=== PATIENT | female | born 1945 | race Caucasian/White ===

== ENCOUNTER 2018-08-20 07:26 | Inpatient (IN) | payer OTHER, MEDICAID ==
[~2018-08-20] VITALS: Ht 162.6 cm; Wt 58.5 kg
[2018-08-20 07:26] VITALS: BP_SYST 122
[2018-08-20 08:10] LABS: HEMATOCRIT 27.8 % (36-48); MEAN CORPUSCULAR HEMOGLOBIN 27 pg (27-31); MEAN CORPUSCULAR VOLUME 84 fL (79.0-98.0); WHITE BLOOD COUNT (AUTO) 9.6 K/uL (4.8-10.8)
[2018-08-20 08:11] LABS: BASOPHILS % (AUTO) 0.2 % (0.0-2.0); EOSINOPHILS % (AUTO) 0.3 % (0.0-4.0); LYMPHOCYTES # (AUTO) 3.6 K/uL (1.0-5.5); MEAN CORPUSCULAR HGB CONC 32 % (32-36); MONOCYTES # (AUTO) 0.6 K/uL (0.0-1.0); MONOCYTES % (AUTO) 6.7 % (1.7-9.3); NEUTROPHILS # (AUTO) 5.4 K/uL (1.8-7.7); NEUTROPHILS % (AUTO) 55.8 % (40.0-70.0); PLATELET COUNT (AUTO) 236 K/uL (130-430); RED CELL DISTRIBUTION WIDTH 21.9 % (9.0-15.0)
[2018-08-20 08:18] LABS: ANION GAP 7 (5-15); CALCIUM 8.1 mg/dL (8.4-11.0); CHLORIDE 116 mmol/L (98-107); CREATININE 2.01 mg/dL (0.55-1.30); GLUCOSE 162 mg/dL (70-99); POTASSIUM 4.2 mmol/L (3.5-5.1); SODIUM SERUM 152 mmol/L (136-145); UREA NITROGEN, BLOOD 48 mg/dL (8-21)
[2018-08-20 08:24] LABS: ALANINE AMINOTRANSFERASE 22 U/L (12-78); ALBUMIN 1.2 g/dL (3.4-4.8); ASPARTATE AMINOTRANSFERASE 48 U/L (10-37); TOTAL BILIRUBIN 0.1 mg/dL (0.0-1.0)
[2018-08-20] MEDS ORDERED: UTI-STAT GT (08:24)
[2018-08-20] MEDS ORDERED: SYN50 GT (08:24)
[2018-08-20] MEDS ORDERED: CAT.1 GT (08:24)
[2018-08-20] MEDS ORDERED: ASCO500T20 GT (08:24)
[2018-08-20] MEDS ORDERED: LEVE500T9 GT (08:24)
[2018-08-20] MEDS ORDERED: METO25TA6 GT (08:24)
[2018-08-20] MEDS ORDERED: MEMA5TAB GT (08:24)
[2018-08-20] MEDS ORDERED: ACET325T53 GT (08:24)
[2018-08-20] MEDS ORDERED: APIX2.5T GT (08:24)
[2018-08-20] MEDS ORDERED: SERT-131 GT (08:24)
[2018-08-20] MEDS ORDERED: SSNOVOLOG SUBCUT (08:24)
[2018-08-20] MEDS ORDERED: DOCU250C14 GT (08:24)
[2018-08-20 08:30] LABS: BILIRUBIN,URINE NEGATIVE (NEGATIVE); BLOOD, URINE 3+ (NEGATIVE); CLARITY/URINE SL CLOUDY (CLEAR); COLOR,URINE YELLOW (YELLOW); GLUCOSE,URINE NEGATIVE (NEGATIVE); KETONES,URINE NEGATIVE (NEGATIVE); LEUKOCYTE ESTERASE ,URINE 3+ (NEGATIVE); NITRITE, URINE NEGATIVE (NEGATIVE); PROTEIN URINE 2+ (NEGATIVE); UROBILINOGEN,URINE 0.2 (0.2-1.0)
[2018-08-20 08:41] LABS: INR 0.9 (0.8-1.2); PROTHROMBIN TIME 9.7 SECS (9.5-12.5)
[2018-08-20 08:52] LABS: BACTERIA,URINE FEW /HPF (None Seen); RBC,URINE 20-50 /HPF (0-3); WBC,URINE 20-50 /HPF (0-3)
[2018-08-20] MEDS ORDERED: cefTRIAXone 1 GM in D5W 50 ML IV ONE (09:15)
[2018-08-20] MEDS ORDERED: cefTRIAXone 1 GM VIAL ONE (09:31)
[2018-08-20 11:30] VITALS: BP_SYST 139
[2018-08-20 12:16] VITALS: BP_SYST 139
[2018-08-20] MEDS ORDERED: ACETAMINOPHEN 325 MG TABLET GT PRN (14:15)
[2018-08-20] MEDS ORDERED: cloNIDine HCL 0.1 MG TABLET GT PRN (14:15)
[2018-08-20 17:01] VITALS: BP_SYST 147
[2018-08-20] MEDS: CEFEPIME 1 GM in D5W 50 ML IV SCH (21:47)
[2018-08-20] MEDS: METOPROLOL TARTRATE 25 MG TABLET GT SCH (21:48)
[2018-08-20] MEDS: APIXABAN 2.5 MG TABLET GT SCH (21:49)
[2018-08-20] MEDS: LevETIRAcetam 500 MG/5 ML UDC ORAL LIQUID GT SCH (21:50)
[2018-08-20] MEDS: DOCUSATE SODIUM 250 MG CAPSULE PO SCH (21:50)
[2018-08-21 01:33] VITALS: BP_SYST 144
[2018-08-21 05:42] LABS: ANION GAP 7 (5-15); CALCIUM 8.4 mg/dL (8.4-11.0); CREATININE 1.81 mg/dL (0.55-1.30); GLUCOSE 154 mg/dL (70-99); POTASSIUM 3.7 mmol/L (3.5-5.1); SODIUM SERUM 156 mmol/L (136-145); UREA NITROGEN, BLOOD 45 mg/dL (8-21)
[2018-08-21 05:55] LABS: CHLORIDE 120 mmol/L (98-107)
[2018-08-21] MEDS: LEVOTHYROXINE SODIUM 0.05 MG TABLET GT SCH (06:30)
[2018-08-21] MEDS: INSULIN REGULAR, HUMAN 100 UNITS/ML, 10 ML VIAL (novoLIN R) SUBCUT PRN (06:38)
[2018-08-21 07:33] LABS: RED BLOOD CELL COUNT(AUTO) 2.71 MIL/uL (4.2-6.2); WHITE BLOOD COUNT (AUTO) 6.1 K/uL (4.8-10.8)
[2018-08-21 07:34] LABS: HEMATOCRIT 23.2 % (36-48); HEMOGLOBIN 7.1 g/dL (12.0-16.0); MEAN CORPUSCULAR HEMOGLOBIN 26 pg (27-31); MEAN CORPUSCULAR HGB CONC 31 % (32-36); MEAN CORPUSCULAR VOLUME 85 fL (79.0-98.0); RED CELL DISTRIBUTION WIDTH 21.9 % (9.0-15.0)
[2018-08-21 07:35] LABS: EOSINOPHILS % (AUTO) 1.5 % (0.0-4.0); MONOCYTES % (AUTO) 13.3 % (1.7-9.3); NEUTROPHILS % (AUTO) 62.6 % (40.0-70.0); PLATELET COUNT (AUTO) 220 K/uL (130-430)
[2018-08-21 07:36] LABS: BASOPHILS % (AUTO) 0.6 % (0.0-2.0); EOSINOPHILS # (AUTO) 0.1 K/uL (0.0-0.4); LYMPHOCYTES # (AUTO) 1.3 K/uL (1.0-5.5); MONOCYTES # (AUTO) 0.8 K/uL (0.0-1.0); NEUTROPHILS # (AUTO) 3.8 K/uL (1.8-7.7)
[2018-08-21 07:50] VITALS: BP_SYST 148
[2018-08-21] MEDS: DOCUSATE SODIUM 250 MG CAPSULE PO SCH ×2 (09:00→20:16)
[2018-08-21] MEDS ORDERED: ENOXAPARIN SODIUM 30 MG/0.3 ML SYRINGE SUBCUT SCH (09:00)
[2018-08-21] MEDS: ASCORBIC ACID 500 MG TABLET GT SCH (09:00)
[2018-08-21] MEDS: SERTRALINE HCL 50 MG TABLET GT SCH (09:00)
[2018-08-21] MEDS: MEMANTINE HCL 5 MG TABLET GT SCH (09:01)
[2018-08-21] MEDS: METOPROLOL TARTRATE 25 MG TABLET GT SCH ×2 (09:01→20:16)
[2018-08-21] MEDS: APIXABAN 2.5 MG TABLET GT SCH ×2 (09:02→21:00)
[2018-08-21] MEDS: LevETIRAcetam 500 MG/5 ML UDC ORAL LIQUID GT SCH ×2 (09:05→20:15)
[2018-08-21 16:19] VITALS: BP_SYST 153
[2018-08-21 19:00] VITALS: BP_SYST 144
[2018-08-21] MEDS: CEFEPIME 1 GM in D5W 50 ML IV SCH (19:48)
[2018-08-21 20:00] VITALS: BP_SYST 144
[2018-08-21 23:55] VITALS: BP_SYST 147
[2018-08-22] MEDS: LEVOTHYROXINE SODIUM 0.05 MG TABLET GT SCH (06:15)
[2018-08-22 07:57] LABS: TOTAL IRON BIND. CAPACITY 165 ug/dL (250-450)
[2018-08-22 08:04] LABS: ANION GAP 6 (5-15); CALCIUM 8.6 mg/dL (8.4-11.0); CREATININE 1.64 mg/dL (0.55-1.30); GLUCOSE 130 mg/dL (70-99); POTASSIUM 3.5 mmol/L (3.5-5.1); SODIUM SERUM 156 mmol/L (136-145); UREA NITROGEN, BLOOD 41 mg/dL (8-21)
[2018-08-22 08:08] LABS: HEMATOCRIT 27.4 % (36-48); HEMOGLOBIN 8.2 g/dL (12.0-16.0); RED BLOOD CELL COUNT(AUTO) 3.15 MIL/uL (4.2-6.2); WHITE BLOOD COUNT (AUTO) 5.9 K/uL (4.8-10.8)
[2018-08-22 08:09] LABS: BASOPHILS % (AUTO) 0.8 % (0.0-2.0); EOSINOPHILS # (AUTO) 0.1 K/uL (0.0-0.4); EOSINOPHILS % (AUTO) 1.7 % (0.0-4.0); LYMPHOCYTES # (AUTO) 1.8 K/uL (1.0-5.5); LYMPHOCYTES % (AUTO) 30.6 % (20.5-51.5); MEAN CORPUSCULAR HEMOGLOBIN 26 pg (27-31); MEAN CORPUSCULAR HGB CONC 30 % (32-36); MEAN CORPUSCULAR VOLUME 87 fL (79.0-98.0); MONOCYTES # (AUTO) 0.7 K/uL (0.0-1.0); MONOCYTES % (AUTO) 11.1 % (1.7-9.3); NEUTROPHILS # (AUTO) 3.3 K/uL (1.8-7.7); NEUTROPHILS % (AUTO) 55.8 % (40.0-70.0); PLATELET COUNT (AUTO) 291 K/uL (130-430)
[2018-08-22 08:10] LABS: CHLORIDE 123 mmol/L (98-107)
[2018-08-22 08:45] VITALS: BP_SYST 119
[2018-08-22] MEDS: DOCUSATE SODIUM 250 MG CAPSULE PO SCH ×2 (09:19→20:29)
[2018-08-22] MEDS: METOPROLOL TARTRATE 25 MG TABLET GT SCH ×2 (09:19→20:30)
[2018-08-22] MEDS: SERTRALINE HCL 50 MG TABLET GT SCH (09:20)
[2018-08-22] MEDS: MEMANTINE HCL 5 MG TABLET GT SCH (09:20)
[2018-08-22] MEDS: ASCORBIC ACID 500 MG TABLET GT SCH (09:20)
[2018-08-22] MEDS: APIXABAN 2.5 MG TABLET GT SCH ×2 (09:22→20:33)
[2018-08-22] MEDS: LevETIRAcetam 500 MG/5 ML UDC ORAL LIQUID GT SCH ×2 (09:34→20:32)
[2018-08-22] MEDS: INSULIN REGULAR, HUMAN 100 UNITS/ML, 10 ML VIAL (novoLIN R) SUBCUT PRN ×3 (11:33→23:43)
[2018-08-22 12:29] VITALS: BP_SYST 149
[2018-08-22 16:25] VITALS: BP_SYST 139
[2018-08-22 19:52] VITALS: BP_SYST 149
[2018-08-22] MEDS: CEFEPIME 1 GM in D5W 50 ML IV SCH (20:29)
[2018-08-23 01:39] VITALS: BP_SYST 144
[2018-08-23] MEDS: LEVOTHYROXINE SODIUM 0.05 MG TABLET GT SCH (06:06)
[2018-08-23] MEDS: INSULIN REGULAR, HUMAN 100 UNITS/ML, 10 ML VIAL (novoLIN R) SUBCUT PRN ×3 (06:13→23:44)
[2018-08-23 07:08] LABS: ANION GAP 2 (5-15); CALCIUM 8.9 mg/dL (8.4-11.0); CREATININE 1.63 mg/dL (0.55-1.30); GLUCOSE 168 mg/dL (70-99); POTASSIUM 3.4 mmol/L (3.5-5.1); SODIUM SERUM 159 mmol/L (136-145); UREA NITROGEN, BLOOD 41 mg/dL (8-21)
[2018-08-23 07:16] LABS: CHLORIDE 126 mmol/L (98-107)
[2018-08-23 08:15] VITALS: BP_SYST 144
[2018-08-23 08:19] LABS: HEMATOCRIT 28.3 % (36-48); HEMOGLOBIN 8.5 g/dL (12.0-16.0); MEAN CORPUSCULAR HEMOGLOBIN 26 pg (27-31); MEAN CORPUSCULAR HGB CONC 30 % (32-36); MEAN CORPUSCULAR VOLUME 87 fL (79.0-98.0); PLATELET COUNT (AUTO) 280 K/uL (130-430); RED BLOOD CELL COUNT(AUTO) 3.27 MIL/uL (4.2-6.2); RED CELL DISTRIBUTION WIDTH 21.9 % (9.0-15.0); WHITE BLOOD COUNT (AUTO) 6.4 K/uL (4.8-10.8)
[2018-08-23 08:20] LABS: BASOPHILS % (AUTO) 0.5 % (0.0-2.0); EOSINOPHILS # (AUTO) 0.1 K/uL (0.0-0.4); EOSINOPHILS % (AUTO) 1.6 % (0.0-4.0); LYMPHOCYTES # (AUTO) 2.3 K/uL (1.0-5.5); MONOCYTES # (AUTO) 0.7 K/uL (0.0-1.0); MONOCYTES % (AUTO) 10.9 % (1.7-9.3); NEUTROPHILS # (AUTO) 3.3 K/uL (1.8-7.7)
[2018-08-23] MEDS: APIXABAN 2.5 MG TABLET GT SCH ×2 (09:55→21:40)
[2018-08-23] MEDS: DOCUSATE SODIUM 250 MG CAPSULE PO SCH ×2 (09:56→21:41)
[2018-08-23] MEDS: LevETIRAcetam 500 MG/5 ML UDC ORAL LIQUID GT SCH ×2 (09:56→21:38)
[2018-08-23] MEDS: MEMANTINE HCL 5 MG TABLET GT SCH (09:56)
[2018-08-23] MEDS: METOPROLOL TARTRATE 25 MG TABLET GT SCH ×2 (09:56→21:36)
[2018-08-23] MEDS: ASCORBIC ACID 500 MG TABLET GT SCH (09:56)
[2018-08-23] MEDS: SERTRALINE HCL 50 MG TABLET GT SCH (09:56)
[2018-08-23 12:06] LABS: FOLATE (FOLIC ACID) 9.2 ng/mL (>3.0)
[2018-08-23 13:12] VITALS: BP_SYST 138
[2018-08-23] MEDS ORDERED: POTASSIUM CHLORIDE 20 MEQ/PKT PACKET GT ONE (16:30)
[2018-08-23 16:59] VITALS: BP_SYST 142
[2018-08-23] MEDS: D5W 1,000 ML IV SCH (18:12)
[2018-08-23 20:54] VITALS: BP_SYST 148
[2018-08-23] MEDS: MEROPENEM 1 GM in NS 100 ML IV SCH (21:37)
[2018-08-24 01:06] VITALS: BP_SYST 131
[2018-08-24] MEDS: MEROPENEM 1 GM in NS 100 ML IV SCH ×2 (06:05→17:37)
[2018-08-24] MEDS: LEVOTHYROXINE SODIUM 0.05 MG TABLET GT SCH (06:05)
[2018-08-24 07:25] LABS: ANION GAP 7 (5-15); CALCIUM 8.3 mg/dL (8.4-11.0); CREATININE 1.62 mg/dL (0.55-1.30); GLUCOSE 155 mg/dL (70-99); POTASSIUM 4.1 mmol/L (3.5-5.1); UREA NITROGEN, BLOOD 39 mg/dL (8-21)
[2018-08-24 07:35] LABS: SODIUM SERUM 164 mmol/L (136-145)
[2018-08-24 07:36] LABS: CHLORIDE 126 mmol/L (98-107)
[2018-08-24 08:00] LABS: HEMATOCRIT 27.2 % (36-48); MEAN CORPUSCULAR VOLUME 88 fL (79.0-98.0); RED BLOOD CELL COUNT(AUTO) 3.09 MIL/uL (4.2-6.2); WHITE BLOOD COUNT (AUTO) 6.9 K/uL (4.8-10.8)
[2018-08-24 08:01] LABS: BASOPHILS % (AUTO) 0.3 % (0.0-2.0); EOSINOPHILS # (AUTO) 0.1 K/uL (0.0-0.4); EOSINOPHILS % (AUTO) 1.8 % (0.0-4.0); LYMPHOCYTES # (AUTO) 2.3 K/uL (1.0-5.5); LYMPHOCYTES % (AUTO) 33.9 % (20.5-51.5); MEAN CORPUSCULAR HEMOGLOBIN 26 pg (27-31); MEAN CORPUSCULAR HGB CONC 30 % (32-36); MONOCYTES # (AUTO) 0.6 K/uL (0.0-1.0); MONOCYTES % (AUTO) 9.4 % (1.7-9.3); NEUTROPHILS # (AUTO) 3.8 K/uL (1.8-7.7); NEUTROPHILS % (AUTO) 54.6 % (40.0-70.0); PLATELET COUNT (AUTO) 289 K/uL (130-430)
[2018-08-24 08:10] VITALS: BP_SYST 130
[2018-08-24] MEDS: D5W 1,000 ML IV SCH (09:47)
[2018-08-24] MEDS: METOPROLOL TARTRATE 25 MG TABLET GT SCH ×2 (09:47→20:13)
[2018-08-24] MEDS: SERTRALINE HCL 50 MG TABLET GT SCH (09:48)
[2018-08-24] MEDS: ASCORBIC ACID 500 MG TABLET GT SCH (09:48)
[2018-08-24] MEDS: LevETIRAcetam 500 MG/5 ML UDC ORAL LIQUID GT SCH ×2 (09:48→20:10)
[2018-08-24] MEDS: DOCUSATE SODIUM 250 MG CAPSULE PO SCH ×2 (09:48→20:10)
[2018-08-24] MEDS: MEMANTINE HCL 5 MG TABLET GT SCH (09:48)
[2018-08-24] MEDS: APIXABAN 2.5 MG TABLET GT SCH ×2 (09:50→20:14)
[2018-08-24 12:31] VITALS: BP_SYST 149
[2018-08-24] MEDS: INSULIN REGULAR, HUMAN 100 UNITS/ML, 10 ML VIAL (novoLIN R) SUBCUT PRN ×2 (12:34→17:39)
[2018-08-24 16:39] VITALS: BP_SYST 132
[2018-08-24 20:00] VITALS: BP_SYST 135
[2018-08-25] VITALS (7 sets, daily range): BP systolic 119–143
[2018-08-25] MEDS: D5W 1,000 ML IV SCH ×2 (01:35→18:30)
[2018-08-25] MEDS ORDERED: MEROPENEM 500 MG VIAL IV ONE (04:45)
[2018-08-25] MEDS: MEROPENEM 1 GM in NS 100 ML IV SCH ×2 (05:29→19:07)
[2018-08-25] MEDS: LEVOTHYROXINE SODIUM 0.05 MG TABLET GT SCH (06:49)
[2018-08-25 07:37] LABS: ANION GAP 1 (5-15); CALCIUM 8.4 mg/dL (8.4-11.0); CHLORIDE 118 mmol/L (98-107); CREATININE 1.49 mg/dL (0.55-1.30); GLUCOSE 135 mg/dL (70-99); POTASSIUM 3.7 mmol/L (3.5-5.1); SODIUM SERUM 152 mmol/L (136-145); UREA NITROGEN, BLOOD 34 mg/dL (8-21)
[2018-08-25] MEDS: DOCUSATE SODIUM 250 MG CAPSULE PO SCH ×2 (09:00→20:59)
[2018-08-25 09:31] LABS: HEMATOCRIT 23.3 % (36-48); HEMOGLOBIN 7.1 g/dL (12.0-16.0); MEAN CORPUSCULAR HEMOGLOBIN 27 pg (27-31); MEAN CORPUSCULAR HGB CONC 31 % (32-36); MEAN CORPUSCULAR VOLUME 86 fL (79.0-98.0); PLATELET COUNT (AUTO) 256 K/uL (130-430); RED CELL DISTRIBUTION WIDTH 21.4 % (9.0-15.0); WHITE BLOOD COUNT (AUTO) 7.9 K/uL (4.8-10.8)
[2018-08-25 09:32] LABS: BASOPHILS % (AUTO) 0.5 % (0.0-2.0); EOSINOPHILS # (AUTO) 0.4 K/uL (0.0-0.4); EOSINOPHILS % (AUTO) 5.2 % (0.0-4.0); LYMPHOCYTES % (AUTO) 38.3 % (20.5-51.5); MONOCYTES # (AUTO) 0.5 K/uL (0.0-1.0); MONOCYTES % (AUTO) 6.6 % (1.7-9.3); NEUTROPHILS # (AUTO) 3.9 K/uL (1.8-7.7); NEUTROPHILS % (AUTO) 49.4 % (40.0-70.0)
[2018-08-25] MEDS: ASCORBIC ACID 500 MG TABLET GT SCH (09:42)
[2018-08-25] MEDS: SERTRALINE HCL 50 MG TABLET GT SCH (09:43)
[2018-08-25] MEDS: MEMANTINE HCL 5 MG TABLET GT SCH (09:43)
[2018-08-25] MEDS: METOPROLOL TARTRATE 25 MG TABLET GT SCH ×2 (09:44→21:12)
[2018-08-25] MEDS: LevETIRAcetam 500 MG/5 ML UDC ORAL LIQUID GT SCH ×2 (09:48→20:58)
[2018-08-25] MEDS: APIXABAN 2.5 MG TABLET GT SCH ×2 (09:48→21:01)
== END 2018-08-26 00:40 | DRG 871 ==
LOC: SED 07:26 → STU 11:35 → SMU 08-21 16:42
PROVIDERS: ADMIT Family Medicine; ATTEND Family Medicine
PROC: 30233N1 Transfusion of Nonautologous Red Blood Cells into Peripheral Vein, Percutaneous Approach (ICD-10-PCS; principal; 2018-08-25)
DX: A41.9 Sepsis, unspecified organism (principal); G93.41 Metabolic encephalopathy; N39.0 Urinary tract infection, site not specified; N17.9 Acute kidney failure, unspecified; E87.0 Hyperosmolality and hypernatremia; Z66 Do not resuscitate; D64.9 Anemia, unspecified; E86.0 Dehydration; E11.9 Type 2 diabetes mellitus without complications; I11.0 Hypertensive heart disease with heart failure; J44.9 Chronic obstructive pulmonary disease, unspecified; E03.9 Hypothyroidism, unspecified; F03.90 Unspecified dementia, unspecified severity, without behavioral disturbance, psychotic disturbance, mood disturbance, and anxiety; I50.9 Heart failure, unspecified; Z93.1 Gastrostomy status; Z79.84 Long term (current) use of oral hypoglycemic drugs; Z79.899 Other long term (current) drug therapy; Z88.1 Allergy status to other antibiotic agents; Z88.8 Allergy status to other drugs, medicaments and biological substances; Z86.73 Personal history of transient ischemic attack (TIA), and cerebral infarction without residual deficits; Z88.6 Allergy status to analgesic agent
CPT/HCPCS: 36415; 36600; 71045; 80048; 80053; 81000-TC; 82607; 82728; 82746; 82803-TC; 82962; 83540-TC; 83550-TC; 83605; 83880; 84484; 85025; 85379; 85610-TC; 85730-TC; 86886; 86900; 86901; 86920; 87040-TC; 87081; 87086; 87186-TC; 93005; 96365; G0378; J0692; J0696; J1815; J2185; J7060; P9021

== ENCOUNTER 2018-09-03 00:34 | Emergency (ER) | payer OTHER, MEDICAID ==
[~2018-09-03] VITALS: Ht 160 cm; Wt 74.8 kg
[~2018-09-03 00:34] MED LIST: ACET325T53 GT; APIX2.5T GT; ASCO500T20 GT; CAT.1 GT; DOCU250C14 GT; LEVE500T9 GT; MEMA5TAB GT; METO25TA6 GT; SERT-131 GT; SSNOVOLOG SUBCUT; SYN50 GT; UTI-STAT GT
[2018-09-03 00:38] VITALS: BP_SYST 128
--- NOTE | 2018-09-03 00:38 | NUR ---
Pt BIBA to bed 3 for evaluation
--- NOTE | 2018-09-03 00:40 | NUR ---
PT BIB BLS from [facility] C/O abdominal distension since 231 last night and mild back pain. Pt has recently finished antibiotic therapy for ESBL of the urine. Pt has hx of UTI and last BM was 2 days ago. Pt has left sided weakness from previous CVA. Pt denies any other symptoms at this time. Vital signs are stable, will continue to monitor.
[2018-09-03] MEDS ORDERED: NACL 0.9% 1,000 ML IV ONE (01:04)
--- NOTE | 2018-09-03 01:07 | NUR ---
Medication reconciliation completed with information provided by [facility]. Any prior medication reconciliation on file was reviewed and corrected.
--- NOTE | 2018-09-03 01:15 | NUR ---
ER Dr. Naqvi at bedside examining patient.
[2018-09-03 01:26] LABS: BASOPHILS % (AUTO) 0.4 % (0.0-2.0); EOSINOPHILS # (AUTO) 0.2 K/uL (0.0-0.4); EOSINOPHILS % (AUTO) 2.3 % (0.0-4.0); HEMATOCRIT 32.6 % (36-48); HEMOGLOBIN 10.4 g/dL (12.0-16.0); LYMPHOCYTES # (AUTO) 2.7 K/uL (1.0-5.5); MEAN CORPUSCULAR HEMOGLOBIN 27 pg (27-31); MEAN CORPUSCULAR HGB CONC 32 % (32-36); MEAN CORPUSCULAR VOLUME 85 fL (79.0-98.0); MONOCYTES # (AUTO) 0.6 K/uL (0.0-1.0); MONOCYTES % (AUTO) 8.2 % (1.7-9.3); NEUTROPHILS # (AUTO) 4.3 K/uL (1.8-7.7); NEUTROPHILS % (AUTO) 55.1 % (40.0-70.0); PLATELET COUNT (AUTO) 177 K/uL (130-430); RED BLOOD CELL COUNT(AUTO) 3.84 MIL/uL (4.2-6.2); RED CELL DISTRIBUTION WIDTH 19.8 % (9.0-15.0); WHITE BLOOD COUNT (AUTO) 7.8 K/uL (4.8-10.8)
--- NOTE | 2018-09-03 01:31 | NUR ---
Pt taken by radiology for ct abd/pelvis via gurney
[2018-09-03 01:40] LABS: ANION GAP 6 (5-15); CALCIUM 8.7 mg/dL (8.4-11.0); CHLORIDE 108 mmol/L (98-107); CREATININE 1.41 mg/dL (0.55-1.30); GLUCOSE 123 mg/dL (70-99); POTASSIUM 4.4 mmol/L (3.5-5.1); SODIUM SERUM 146 mmol/L (136-145); UREA NITROGEN, BLOOD 39 mg/dL (8-21)
[2018-09-03 01:43] LABS: PROTHROMBIN TIME 9.8 SECS (9.5-12.5)
[2018-09-03 01:44] LABS: ALANINE AMINOTRANSFERASE 19 U/L (12-78); ALBUMIN 1.6 g/dL (3.4-4.8); ASPARTATE AMINOTRANSFERASE 21 U/L (10-37); TOTAL BILIRUBIN 0.2 mg/dL (0.0-1.0)
--- NOTE | 2018-09-03 02:00 | NUR ---
# 16 FR Ny catheter with use of sterile technique. Immediate return of 900 cc phill urine noted. Bedside drainage bag placed below level of bladder. Urine sample collected and sent to lab. Pt tolerated procedure well. Ny emptying to gravity well. Will continue to monitor pt.
[2018-09-03 02:11] LABS: BILIRUBIN,URINE NEGATIVE (NEGATIVE); BLOOD, URINE 3+ (NEGATIVE); CLARITY/URINE HAZY (CLEAR); COLOR,URINE YELLOW (YELLOW); GLUCOSE,URINE NEGATIVE (NEGATIVE); KETONES,URINE NEGATIVE (NEGATIVE); LEUKOCYTE ESTERASE ,URINE 1+ (NEGATIVE); NITRITE, URINE NEGATIVE (NEGATIVE); PROTEIN URINE 2+ (NEGATIVE); UROBILINOGEN,URINE 0.2 (0.2-1.0)
[2018-09-03 02:16] LABS: BACTERIA,URINE FEW /HPF (None Seen); RBC,URINE 50-80 /HPF (0-3); WBC,URINE 20-50 /HPF (0-3)
--- NOTE | 2018-09-03 03:44 | NUR ---
Note undone in EDM - 09/03/18 at 0347 by [email or web address] Patient to be transferred back to [facility]. Pt will be returning back to her room. ER physician has signed transfer form. Patient or responsible constitution party has agreed to transfer and signed form. Patient belongings inventoried and will be sent with patient. Copy of nursing notes, lab reports, EKG, Physicians Orders and X-rays to be sent with patient. Report called to Nurse Alfaro at receiving facility, [facility]. Care ambulance service has been called for transfer. Care ambulance prsent. ETA is about 20 minuites.
--- NOTE | 2018-09-03 03:47 | NUR ---
Patient given written and verbal discharge instructions and verbalizes understanding. ER MD discussed with patient the results and treatment provided. Patient in stable condition. ID arm band removed. IV catheter removed intact and dressing applied, no active bleeding.Patient educated on pain management and to follow up with PMD. Pain Scale 0/10. Opportunity for questions provided and answered. Medication side effect fact sheet provided. Patient to be discharged back to [facility]. Copy of nursing notes, lab reports, EKG, Physicians Orders and X-rays to be sent with patient. Report called to Nurse Alfaro at receiving facility, [facility]. Care ambulance service prsent. ETA is about 20 minuites.
[2018-09-03 03:49] VITALS: BP_SYST 115
== END 2018-09-03 03:49 | disposition home or self-care (01) ==
LOC: SED 00:34
DX: N39.0 Urinary tract infection, site not specified (principal); R33.9 Retention of urine, unspecified; D64.9 Anemia, unspecified; I13.0 Hypertensive heart and chronic kidney disease with heart failure and stage 1 through stage 4 chronic kidney disease, or unspecified chronic kidney disease; E11.22 Type 2 diabetes mellitus with diabetic chronic kidney disease; N18.9 Chronic kidney disease, unspecified; I50.9 Heart failure, unspecified; Z86.73 Personal history of transient ischemic attack (TIA), and cerebral infarction without residual deficits; Z88.1 Allergy status to other antibiotic agents; Z88.5 Allergy status to narcotic agent; Z88.8 Allergy status to other drugs, medicaments and biological substances; Z79.899 Other long term (current) drug therapy
CPT/HCPCS: 36415; 51702; 74176; 80053; 81000; 85025; 85610; 85730; 87086; 99284; J7030

== ENCOUNTER 2018-09-09 07:29 | Inpatient (IN) | payer OTHER, MEDICAID ==
[~2018-09-09] VITALS: Ht 162.6 cm; Wt 61.7 kg
--- NOTE | 2018-09-09 07:35 | NUR ---
Placed in room 2. Placed on cardiac rehabilitation program director, blood pressure machine and pulse oximeter. To gown for exam. Side rails up. Report given to SHELLY Campa.
[2018-09-09 07:37] VITALS: BP_SYST 127
--- NOTE | 2018-09-09 07:40 | NUR ---
Patient is awake, alert, and oriented x4. Patient came in by ambulance from [facility]. Rales can be heard throughout. Patient was brought in with NRB mask on. Labored breathing and rales noted. Addendum: 09/09/18 at 0742 by [email or web address] Patient brought in with 22g to left AC, g-tube, meneses catheter.
--- NOTE | 2018-09-09 07:40 | NUR ---
ER Dr. Berry at bedside examining patient.
[2018-09-09] MEDS ORDERED: methylPREDNISolone SOD SUCC/PF 62.5 MG/ML VIAL IVP ONE ×2 (07:45→12:30)
[2018-09-09] MEDS ORDERED: MAGNESIUM SULFATE 1 GM in NS 50 ML IV ONE (07:45)
[2018-09-09] MEDS ORDERED: ALBUTEROL SULFATE 0.083% 2.5 MG/3 ML VIAL.NEB IH ONE (07:45)
[2018-09-09] MEDS ORDERED: IPRATROPIUM BROM 0.5 MG/2.5 ML VIAL.NEB (ATROVENT) IH ONE (07:45)
--- NOTE | 2018-09-09 07:57 | NUR ---
RT placed patient on BiPAP 12/5, FiO2 50%, BR 16.
[2018-09-09] MEDS ORDERED: MAGNESIUM SULFATE 1 GM/2 ML VIAL ONE (08:11)
[2018-09-09] MEDS ORDERED: VANCOMYCIN HCL 1,000 MG in D5W 250 ML IV ONE (08:30)
[2018-09-09] MEDS ORDERED: NS 1000 ML IV.SOLN IV ONE (08:30)
[2018-09-09] MEDS ORDERED: PIPERACILLIN/TAZO 3.38 GM in D5W 50 ML IV ONE (08:30)
[2018-09-09 08:48] LABS: BASOPHILS % (AUTO) 0.5 % (0.0-2.0); EOSINOPHILS # (AUTO) 0.1 K/uL (0.0-0.4); EOSINOPHILS % (AUTO) 0.6 % (0.0-4.0); HEMOGLOBIN 10.4 g/dL (12.0-16.0); LYMPHOCYTES # (AUTO) 1.1 K/uL (1.0-5.5); LYMPHOCYTES % (AUTO) 13.7 % (20.5-51.5); MEAN CORPUSCULAR HEMOGLOBIN 27 pg (27-31); MEAN CORPUSCULAR HGB CONC 31 % (32-36); MEAN CORPUSCULAR VOLUME 87 fL (79.0-98.0); MONOCYTES # (AUTO) 0.5 K/uL (0.0-1.0); MONOCYTES % (AUTO) 6.7 % (1.7-9.3); NEUTROPHILS # (AUTO) 6.4 K/uL (1.8-7.7); NEUTROPHILS % (AUTO) 78.5 % (40.0-70.0); PLATELET COUNT (AUTO) 143 K/uL (130-430); RED CELL DISTRIBUTION WIDTH 21.1 % (9.0-15.0); WHITE BLOOD COUNT (AUTO) 8.1 K/uL (4.8-10.8)
[2018-09-09] MEDS ORDERED: PIPERACILLIN/TAZOBACTAM 3.375 GM/VIAL (ZOSYN) IV ONE (09:01)
[2018-09-09 09:03] LABS: ANION GAP 5 (5-15); CALCIUM 8.7 mg/dL (8.4-11.0); CHLORIDE 106 mmol/L (98-107); CREATININE 1.02 mg/dL (0.55-1.30); GLUCOSE 156 mg/dL (70-99); POTASSIUM 4.4 mmol/L (3.5-5.1); SODIUM SERUM 143 mmol/L (136-145); UREA NITROGEN, BLOOD 32 mg/dL (8-21)
[2018-09-09 09:05] LABS: INR 0.9 (0.8-1.2); PROTHROMBIN TIME 9.5 SECS (9.5-12.5)
[2018-09-09 09:08] LABS: ALANINE AMINOTRANSFERASE 16 U/L (12-78); ALBUMIN 1.8 g/dL (3.4-4.8); ASPARTATE AMINOTRANSFERASE 22 U/L (10-37); TOTAL BILIRUBIN 0.5 mg/dL (0.0-1.0)
[2018-09-09] MEDS ORDERED: CLOPIDOGREL BISULFATE 75 MG TABLET PO ONE (09:15)
--- NOTE | 2018-09-09 09:40 | NUR ---
Patient will be admitted to care of Dr. Nance. Admitted to telemetry unit. Will go to room 133A. Belongings list completed. Summary report printed. Report will be given at bedside.
[2018-09-09] MEDS ORDERED: MORPHINE 4 MG/ML INJ. SYRINGE IVP PRN ×2 (09:45)
[2018-09-09] MEDS ORDERED: IPRATROPIUM/ALBUTEROL SULFATE 3 ML AMPUL.NEB (DUONEB) INH ONE (09:45)
[2018-09-09] MEDS ORDERED: cloNIDine HCL 0.1 MG TABLET GT PRN (09:45)
[2018-09-09] MEDS ORDERED: MAGNESIUM SULFATE 50 ML IV PRN (09:45)
[2018-09-09] MEDS ORDERED: ONDANSETRON HCL 4 MG/2 ML VIAL IVP PRN (09:45)
[2018-09-09] MEDS ORDERED: POTASSIUM CHLORIDE 20 MEQ TAB.PRT.SR PO PRN (09:45)
[2018-09-09] MEDS ORDERED: DOCUSATE SODIUM 100 MG CAPSULE PO PRN (09:45)
[2018-09-09] MEDS ORDERED: ZOLPIDEM TARTRATE 5 MG TABLET PO PRN (09:45)
[2018-09-09] MEDS ORDERED: MUPIROCIN 2% TOPICAL OINTMENT 22 GM NS PRN (09:45)
[2018-09-09] MEDS ORDERED: DEXTROSE 50% JECT 50 ML DISP.SYRIN IVP PRN (09:45)
[2018-09-09] MEDS ORDERED: NACL 0.9% 1,000 ML IV SCH (09:45)
[2018-09-09] MEDS ORDERED: ACETAMINOPHEN 325 MG TABLET GT PRN (09:45)
[2018-09-09] MEDS ORDERED: ACETAMINOPHEN 325 MG TABLET PO PRN (09:45)
[2018-09-09] MEDS ORDERED: LORazepam 2 MG/ML VIAL IVP PRN (09:45)
--- NOTE | 2018-09-09 09:52 | NUR ---
BiPAP titrated down to 40% by RT Fadi.
--- NOTE | 2018-09-09 11:00 | NUR ---
Patient transported to telemetry room 133A via [employer], mobile monitor, 2 RNs. Report given to SHELLY Qureshi at bedside for continuation of care.
--- NOTE | 2018-09-09 11:04 | NUR ---
CONSULT SWALLOW JACKI SAMUELS FOR BRUCE (ST) @ [phone]
--- NOTE | 2018-09-09 11:08 | NUR ---
ADMISSION NOTE Received patient from ER via kunal. Report received from Lokesh BRAVO. Patient admitted with diagnosis of PNA . Patient is awake . Current O2 sat is 97% on RA. Patient oriented to hospital room, call light, toileting, pain management and safety-teach back done. Patient informed that will be nurse and that their room number is . Personal belongings checked and Belongings List documented. Call light within reach.
--- NOTE | 2018-09-09 11:08 | NUR ---
CONSULT PULMONOLOGY DR YORK [phone] S/W [facility]
--- NOTE | 2018-09-09 11:11 | NUR ---
CONSULT CARDIOLOGY ELEVATED TROPONIN DR EDGAR [phone] S/W [facility]
[2018-09-09 11:18] VITALS: BP_SYST 146
[2018-09-09] MEDS: PIPERACILLIN/TAZO 3.375 GM in NS 50 ML IV SCH ×2 (11:46→17:42)
--- NOTE | 2018-09-09 11:50 | NUR ---
Opening notes, received pt from castillo. pt is aao2-3, denies pain, no sob, pt came in with o2 per nc, o2 sat was 97%. bp wnl, no fever. safety precaution kept in place. call light in reach. pt educated on the use of callight and bed controls. pt has g-tube which is clamped at this time. encouraged pt to call for assist and pain meds or any concerns. will cont to monitor.
--- NOTE | 2018-09-09 11:55 | NUR ---
WOUND EVALUATION: Late note for 1155 secondary to patient care. Wound Consult received from Dr. Nance. Thank you, Dr. Nance, for the consult. Patient received in a [place]met[place] Bed with an Isoflex GISEL mattress (low air loss therapy was initiated), awake, alert, confused. Patient is unable to turn in bed independently. Herbert Score is a 13. Past Medical History: CHF, CVA, COPD, Diabetes Mellitus, Hypertension. Recent Labs: WBC 8.1, RBC 3.80, hemoglobin 10.4, hematocrit 33.0, BUN 32, creatinine 1.02, glucose 156, total creatine kinase 15, albumin 1.8. BNP 881, PTT 22.3. Microbiology: Blood culture results 2 in progress. MRSA screen results in progress. Intrinsic factors that delay wound healing: Diabetes Mellitus, COPD, Hypoalbuminemia. Extrinsic factors that delay wound healing: Decreased mobility. Bilateral hands have ecchymosis. Wound Assessment: 1. Right Sacral area: Reopened scar tissue from a wound of prior unknown etiology, present on admission. Wound bed has 100% pink tissue. No odor, no drainage. Periwound intact. Surrounding tissue has blanchable erythema, and scar tissue. Wound measures 0.7 cm x 0.5 cm. Recommend: Cleanse wounds with normal saline. Pat dry. Apply moisture barrier cream to wound and yvan-wound. Apply Hydrogel to any portion of wound not covered by moisture barrier cream. Cover with Sacral foam dressing. Perform wound care daily, and as needed for dressing soiling or dislodgement. 2. Bilateral lower buttocks/Perianal area: IAD with moisture associated skin damage, present on admission. Site has 100% pink, Beau tissue. No odor, no drainage. Periwound intact. Recommend: Cleanse involved areas with normal saline. Pat dry. Apply moisture barrier cream to involved areas. Perform site care qid, and as needed for soiling. 3. Left lateral foot: Blanchable redness, present on admission. Recommend: Offload, elevate and float bilateral heels with pillows at all times. Do not allow any portion of foot or heel to touch bed or other surfaces at any time. Also recommend: Encourage and assist patient with repositioning [id number] only every 2 hours with pillow support, and off-load pressure areas with pillows for pressure re-distribution. Offload, elevate and float bilateral heels with pillows at all times. Perform skin care and monitor skin integrity Q shift. Use moisture barrier cream on buttocks and other moisture susceptible areas QID and as needed for soiling. Maintain patient on a low air-loss mattress.
[2018-09-09] MEDS: INSULIN LISPRO SLIDING SCALE 100 UNITS/ML VIAL (humaLOG) SUBCUT PRN ×3 (12:06→20:56)
[2018-09-09 12:08] VITALS: BP_SYST 146
[2018-09-09] MEDS ORDERED: FUROSEMIDE 40 MG/4 ML VIAL IVP ONE (12:30)
[2018-09-09] MEDS: 0.45% NACL 1,000 ML IV SCH (13:49)
[2018-09-09] MEDS ORDERED: methylPREDNISolone SOD SUCC/PF 62.5 MG/ML VIAL IVP SCH (14:00)
--- NOTE | 2018-09-09 15:08 | NUR ---
S.T. SWALLOW EVAL COMPLETED. PT PRESENTS W/ ML ORAL DYSPHAGIA W/ ML PROLONGED MASTICATION. NO S/S OF ASPIRATION. REC: MECH SOFT FINELY CHOPPED DIET. THIN LIQUIDS OK. ADJUST GT FEEDING INDICATED. MAY CONSIDER VIDEO SWALLOW STUDY D/T HX OF GT AND DX OF PNEUMONIA. NURSE RAKAN NOTIFIED. [id number] CJ [id number] CJ G8998 CJ NOMS LEVEL 5
[2018-09-09 16:28] VITALS: BP_SYST 151
[2018-09-09 17:22] LABS: BILIRUBIN,URINE NEGATIVE (NEGATIVE); BLOOD, URINE 2+ (NEGATIVE); CLARITY/URINE SL CLOUDY (CLEAR); COLOR,URINE YELLOW (YELLOW); GLUCOSE,URINE 1+ (NEGATIVE); KETONES,URINE NEGATIVE (NEGATIVE); LEUKOCYTE ESTERASE ,URINE 3+ (NEGATIVE); NITRITE, URINE NEGATIVE (NEGATIVE); PH,URINE 5.5 (5.0-8.0); PROTEIN URINE NEGATIVE (NEGATIVE); UROBILINOGEN,URINE 0.2 (0.2-1.0)
[2018-09-09 17:25] LABS: RBC,URINE >100 /HPF (0-3)
[2018-09-09 17:26] LABS: BACTERIA,URINE FEW /HPF (None Seen); WBC,URINE >100 /HPF (0-3)
[2018-09-09] MEDS: IPRATROPIUM/ALBUTEROL SULFATE 3 ML AMPUL.NEB (DUONEB) INH SCH ×2 (17:38→20:45)
--- NOTE | 2018-09-09 18:32 | NUR ---
PT GIVEN 1/2 CUP OF WATER. PT SWALLOWED THIN WATER WITHOUT COUGHING OR S/S OF ASPIRATION. TOLD PATIENT TO TAKE IT EASY, THAT TOMORROW VIDEO SWALLOW EVAL WILL BE DONE TO MAKE SURE SHE IS NOW ASPIRATING.
--- NOTE | 2018-09-09 18:50 | NUR ---
DR EDGAR IS HERE AN SEEN PT. INFORMED MD THAT PT'S TROPONIN IS 0.101, DR STEWART IS ALSO AWARE OF THIS LAB VALUE. NO NEW ORDER.
--- NOTE | 2018-09-09 19:12 | NUR ---
OPENING NOTE Patient resting in bed awake, alert, oriented x3. Breathing unlabored and even on 2L oxygen via NC. No signs of distress, no needs at this time. Fall, safety, aspiration precautions in place. Bed in lowest position, brake on, alarm on, call light within reach. IVF infusing as ordered. G-tube feeding infusing as ordered. Pillow support in place. Low airloss mattress. Ny catheter draining via gravity. Will continue to monitor.
--- NOTE | 2018-09-09 20:08 | NUR ---
Zeny Ruelas Guy called for patient's admitting diagnosis.
[2018-09-09 20:16] VITALS: BP_SYST 114
[2018-09-09] MEDS: LevETIRAcetam 500 MG/5 ML UDC ORAL LIQUID GT SCH (20:47)
[2018-09-09] MEDS: DOCUSATE SODIUM 250 MG CAPSULE PO SCH (20:47)
--- NOTE | 2018-09-09 20:47 | NUR ---
RT at the bedside.
[2018-09-09] MEDS: CARVEDILOL 12.5 MG TABLET (COREG) PO SCH (20:52)
[2018-09-09] MEDS: APIXABAN 2.5 MG TABLET GT SCH (20:55)
--- NOTE | 2018-09-09 20:59 | NUR ---
Med pass. Blood sugar: 215. Administered 4 units of humalog insulin per PRN insulin sliding scale.
[2018-09-09] MEDS ORDERED: METOPROLOL TARTRATE 25 MG TABLET GT SCH (21:00)
[2018-09-09] MEDS ORDERED: FUROSEMIDE 20 MG TABLET PO SCH (21:00)
--- NOTE | 2018-09-09 23:05 | NUR ---
Patient resting in bed with eyes closed. Breathing unlabored and even on 2L oxygen via NC. No signs of distress, no needs at this time. Fall, safety, aspiration precautions in place. Bed in lowest position, brake on, alarm on, call light within reach. IVF infusing as ordered. G-tube feeding infusing as ordered. Pillow support in place. Low airloss mattress. Ny catheter draining via gravity. Will continue to monitor.
[2018-09-10 00:25] VITALS: BP_SYST 105
[2018-09-10] MEDS: PIPERACILLIN/TAZO 3.375 GM in NS 50 ML IV SCH ×3 (01:10→17:04)
--- NOTE | 2018-09-10 01:12 | NUR ---
IV abx hung
[2018-09-10] MEDS: LEVOTHYROXINE SODIUM 0.05 MG TABLET GT SCH (06:22)
[2018-09-10] MEDS: INSULIN LISPRO SLIDING SCALE 100 UNITS/ML VIAL (humaLOG) SUBCUT PRN ×2 (06:25→17:05)
--- NOTE | 2018-09-10 06:29 | NUR ---
Med pass. Blood sugar: 149. No insulin coverage at this time.
[2018-09-10 06:38] LABS: ANION GAP 5 (5-15); CALCIUM 8.1 mg/dL (8.4-11.0); CHLORIDE 106 mmol/L (98-107); CREATININE 1.11 mg/dL (0.55-1.30); GLUCOSE 154 mg/dL (70-99); POTASSIUM 3.3 mmol/L (3.5-5.1); SODIUM SERUM 140 mmol/L (136-145); UREA NITROGEN, BLOOD 30 mg/dL (8-21)
--- NOTE | 2018-09-10 06:41 | NUR ---
CLOSING NOTE Patient resting in bed with eyes closed. Breathing unlabored and even on 2L oxygen via NC. No signs of distress, no needs at this time. Fall, safety, aspiration precautions in place. Bed in lowest position, brake on, alarm on, call light within reach. IVF infusing as ordered. G-tube feeding infusing as ordered. Pillow support in place. Low airloss mattress. Ny catheter draining via gravity. Will endorse cares to day shift nurse.
[2018-09-10 07:08] LABS: BASOPHILS % (AUTO) 0.1 % (0.0-2.0); HEMATOCRIT 26.9 % (36-48); HEMOGLOBIN 8.5 g/dL (12.0-16.0); LYMPHOCYTES # (AUTO) 1.5 K/uL (1.0-5.5); LYMPHOCYTES % (AUTO) 22.3 % (20.5-51.5); MEAN CORPUSCULAR HEMOGLOBIN 27 pg (27-31); MEAN CORPUSCULAR HGB CONC 32 % (32-36); MEAN CORPUSCULAR VOLUME 86 fL (79.0-98.0); MONOCYTES # (AUTO) 0.6 K/uL (0.0-1.0); NEUTROPHILS # (AUTO) 4.6 K/uL (1.8-7.7); NEUTROPHILS % (AUTO) 68.6 % (40.0-70.0); PLATELET COUNT (AUTO) 122 K/uL (130-430); RED BLOOD CELL COUNT(AUTO) 3.13 MIL/uL (4.2-6.2); RED CELL DISTRIBUTION WIDTH 21.7 % (9.0-15.0); WHITE BLOOD COUNT (AUTO) 6.7 K/uL (4.8-10.8)
--- NOTE | 2018-09-10 07:20 | NUR ---
AM ROUNDS: PATIENT AWAKE DURING ROUNDS. BEDSIDE REPORT GIVEN BY NIGHT NURSE SEPIDEH.RIGHT SIDE WEAKNESS AND CONTRACTED.G-TUBE FEEDS ON GOING AT 80CC/H X 20 HOURS ORDERED.ABLE TO FOLLOW COMMANDS. CALL LIGHT WITH IN REACH. BED LOCKED AT LOWEST POSITION.BED ALARM ON. FOR VIDEO SWALLOW TODAY ORDERED.CONTINUE TO MONITOR.
[2018-09-10] MEDS: IPRATROPIUM/ALBUTEROL SULFATE 3 ML AMPUL.NEB (DUONEB) INH PRN (07:49)
[2018-09-10 08:35] VITALS: BP_SYST 143
[2018-09-10] MEDS ORDERED: FUROSEMIDE 40 MG/4 ML VIAL IVP ONE (09:00)
[2018-09-10] MEDS ORDERED: methylPREDNISolone SOD SUCC 40 MG/ML VIAL IVP SCH (09:00)
[2018-09-10] MEDS ORDERED: FUROSEMIDE 20 MG/2 ML VIAL IVP SCH (09:00)
--- NOTE | 2018-09-10 09:00 | NUR ---
TUBE FEED: TUBE FEEDS X 20 HOURS THEN OFF .WILL RESUME FEEDS AFTER 4HOURS ORDERED.
[2018-09-10] MEDS: IPRATROPIUM/ALBUTEROL SULFATE 3 ML AMPUL.NEB (DUONEB) INH SCH ×3 (09:06→20:15)
[2018-09-10] MEDS ORDERED: methylPREDNISolone SOD SUCC/PF 62.5 MG/ML VIAL IVP ONE (09:15)
--- NOTE | 2018-09-10 09:18 | NUR ---
WHEEZING: CALLED DR YORK INFORMED HER PATIENT IS WHEEZING,WITH ORDERS GIVE LASIX 40MG IVP AND SOLU MEDROL INCREASED TO 60MG IVP ,GIVEN ORDERED. NO PROBLEM.
[2018-09-10] MEDS ORDERED: methylPREDNISolone SOD SUCC 40 MG/ML VIAL IVP ONE (09:30)
--- NOTE | 2018-09-10 10:25 | NUR ---
Nutrition Update Herbert Scale 14 noted. Pt admitted for aspiration pneumonia. Diet: Glucerna 1.2 at 50 ml/hr, Free Water Flush: 50 via GT BMI: 24.6 kg/m2 RD to follow per nutrition care standards.
[2018-09-10] MEDS: metFORMIN HCL 500 MG TABLET PO SCH ×2 (10:31→17:04)
[2018-09-10] MEDS: MEMANTINE HCL 5 MG TABLET GT SCH (10:32)
[2018-09-10] MEDS: SERTRALINE HCL 50 MG TABLET GT SCH (10:32)
[2018-09-10] MEDS: DOCUSATE SODIUM 250 MG CAPSULE PO SCH ×2 (10:32→20:44)
[2018-09-10] MEDS: ASCORBIC ACID 500 MG TABLET GT SCH (10:36)
[2018-09-10] MEDS: APIXABAN 2.5 MG TABLET GT SCH ×2 (10:36→20:43)
[2018-09-10] MEDS: CARVEDILOL 12.5 MG TABLET (COREG) PO SCH ×2 (10:37→20:46)
[2018-09-10] MEDS: LevETIRAcetam 500 MG/5 ML UDC ORAL LIQUID GT SCH ×2 (10:38→20:42)
--- NOTE | 2018-09-10 11:03 | NUR ---
ACCU CHECK: BLOOD OBHUM=603AV/DL,NO INSULIN NEEDED PER SLIDING SCALE.
[2018-09-10] MEDS: 0.45% NACL 1,000 ML IV SCH (11:06)
[2018-09-10 11:23] VITALS: BP_SYST 153
--- NOTE | 2018-09-10 13:00 | NUR ---
TUBE FEEDS: TUBE FEEDS TURN ON ORDERED. NO PROBLEM.
[2018-09-10] MEDS: methylPREDNISolone SOD SUCC/PF 62.5 MG/ML VIAL IVP SCH ×2 (14:44→21:09)
--- NOTE | 2018-09-10 14:48 | NUR ---
RN ROUNDS: NO WHEEZING THIS TIME. BREATHING IMPROVED.
[2018-09-10 14:56] VITALS: BP_SYST 133
--- NOTE | 2018-09-10 17:10 | NUR ---
ACCU CHECK: BLOOD BZZCW=623KQ/DL,HUMALOG 2 UNITS SUBQ GIVEN PER SLIDING SCALE. NO PROBLEM.
--- NOTE | 2018-09-10 17:32 | NUR ---
Dietitian Recommendations * Recommend Glucerna 1.2 at 55 ml/hr x24 hours, which provides 1584 kcal, 79 g Pro, and 1063 ml free water per day * Recommend water flush per MD d/t CHF TF provides 96% of the lower end estimated caloric needs and 95% of the upper end estimated protein needs. Monitor/Evaluation Comment director internal communications called Dr. Nance's office to inquire about TF rec approval. Dr. Nance approved RD rec for increasing TF and he also clarified water flush order to [address] spoke w/ pt's primary RN regarding modified TF order -- she stated she was not comfortable w/ providing additional fluids d/t pt's aspiration pneumonia -- RN to F/U w/ Dr. Trinh regarding further instructions for possible fluid restriction. LP, RD Please refer to Nutrition Assessment for details.
--- NOTE | 2018-09-10 18:38 | NUR ---
CLOSING NOTES: PATIENT WITH MILD WHEEZING , NOT IN DISTRESS. TUBE FEEDS ON GOING. CALL LIGHT WITH IN REACH. BED LOCKED AT LOWEST POSITION. BED ALARM ON. CONTINUE TO MONITOR.
[2018-09-10 19:18] VITALS: BP_SYST 138
--- NOTE | 2018-09-10 19:18 | NUR ---
Start of shift Assessment Received patient in bed awake alert oriented x 1. No c/o pain and no distress noted. No L hemiphlegia. IV noted to R a/c g 20 no infiltrate and with good blood return. G tube noted no kink, patent with 10cc residual. Bed alarm on, side rails up and bed in low position. Will cont to monitor.
[2018-09-10] MEDS: FUROSEMIDE 20 MG/2 ML VIAL IVP SCH (20:49)
--- NOTE | 2018-09-10 23:15 | NUR ---
Partial bed bath Partial bed bath rendered with Lashaun NEWMAN. Reposition for comfort and good circulation. Left patient with call light in reach, side rails up x3 and bed alarm on for safety. Will cont to monitor.
[2018-09-11 00:28] VITALS: BP_SYST 136
[2018-09-11] MEDS: PIPERACILLIN/TAZO 3.375 GM in NS 50 ML IV SCH ×3 (01:26→17:06)
[2018-09-11] MEDS: methylPREDNISolone SOD SUCC/PF 62.5 MG/ML VIAL IVP SCH ×3 (06:01→21:00)
[2018-09-11] MEDS: LEVOTHYROXINE SODIUM 0.05 MG TABLET GT SCH (06:02)
[2018-09-11 06:15] LABS: ANION GAP 6 (5-15); CALCIUM 8.4 mg/dL (8.4-11.0); CHLORIDE 108 mmol/L (98-107); CREATININE 1.15 mg/dL (0.55-1.30); GLUCOSE 138 mg/dL (70-99); POTASSIUM 4.1 mmol/L (3.5-5.1); SODIUM SERUM 143 mmol/L (136-145); UREA NITROGEN, BLOOD 35 mg/dL (8-21)
--- NOTE | 2018-09-11 06:21 | NUR ---
AM care AM care rendered to patient. No c/o pain and no s/s of any distress noted. Call light in reach, will cont to monitor.
[2018-09-11 06:26] LABS: BASOPHILS % (AUTO) 0.1 % (0.0-2.0); HEMATOCRIT 34.7 % (36-48); HEMOGLOBIN 10.9 g/dL (12.0-16.0); LYMPHOCYTES # (AUTO) 1.3 K/uL (1.0-5.5); MEAN CORPUSCULAR HEMOGLOBIN 27 pg (27-31); MEAN CORPUSCULAR HGB CONC 31 % (32-36); MEAN CORPUSCULAR VOLUME 87 fL (79.0-98.0); MONOCYTES # (AUTO) 0.2 K/uL (0.0-1.0); MONOCYTES % (AUTO) 3.9 % (1.7-9.3); NEUTROPHILS # (AUTO) 3.4 K/uL (1.8-7.7); PLATELET COUNT (AUTO) 133 K/uL (130-430); RED BLOOD CELL COUNT(AUTO) 3.98 MIL/uL (4.2-6.2); RED CELL DISTRIBUTION WIDTH 21.9 % (9.0-15.0)
--- NOTE | 2018-09-11 06:49 | NUR ---
End of shift notes Patient is awake resting in bed at this time. No s/s of respi distress at this time. All need met and anticipated by staff. Call light in reach, bed alarm on and side rails up x3 for safety. Will endorse care to incoming nurse.
--- NOTE | 2018-09-11 07:22 | NUR ---
End of shift notes Patient is awake resting in bed at this time. No s/s of any distress noted. All need met and anticipated by staff. Call light in reach, will cont to monitor.
--- NOTE | 2018-09-11 07:34 | NUR ---
AM ROUNDS: PATIENT LYING ON THE BED,SLEEPING. ON O2 2L/NC,GOOD SATURATION. WITH MILD WHEEZING HEARD BUT NOT IN ANY DISTRESS. TUBE FEEDS ON GOING.IVF ON GOING WELL INTACT.JEREZ,PINKISH-REDDISH COLOR URINE. CALL LIGHT WITH IN REACH. BED LOCKED AT LOWEST POSITION. BED ALARM ON. CONDITION GUARDED.
[2018-09-11 08:00] VITALS: BP_SYST 147
[2018-09-11] MEDS: IPRATROPIUM/ALBUTEROL SULFATE 3 ML AMPUL.NEB (DUONEB) INH SCH ×3 (08:12→20:18)
[2018-09-11] MEDS: metFORMIN HCL 500 MG TABLET PO SCH ×2 (08:18→17:05)
[2018-09-11] MEDS: ASCORBIC ACID 500 MG TABLET GT SCH (08:19)
[2018-09-11] MEDS: DOCUSATE SODIUM 250 MG CAPSULE PO SCH ×2 (08:19→21:01)
[2018-09-11] MEDS: MEMANTINE HCL 5 MG TABLET GT SCH (08:19)
[2018-09-11] MEDS: CARVEDILOL 12.5 MG TABLET (COREG) PO SCH ×2 (08:20→21:01)
[2018-09-11] MEDS: FUROSEMIDE 20 MG/2 ML VIAL IVP SCH ×2 (08:21→21:01)
[2018-09-11] MEDS: SERTRALINE HCL 50 MG TABLET GT SCH (08:22)
[2018-09-11] MEDS: APIXABAN 2.5 MG TABLET GT SCH ×2 (08:23→21:02)
[2018-09-11] MEDS: LevETIRAcetam 500 MG/5 ML UDC ORAL LIQUID GT SCH ×2 (08:35→21:07)
--- NOTE | 2018-09-11 11:18 | NUR ---
Accu Check: Blood sugar taken,no insulin needed this time per sliding scale.
[2018-09-11 12:41] VITALS: BP_SYST 109
--- NOTE | 2018-09-11 14:45 | NUR ---
rn rounds: resting comfortable. stable.
[2018-09-11 16:50] VITALS: BP_SYST 141
--- NOTE | 2018-09-11 17:15 | NUR ---
Accu Check: Blood sugar taken,no insulin needed per sliding scale.
--- NOTE | 2018-09-11 18:46 | NUR ---
END OF SHIFT: PATIENT COMFORTABLE. TOLERATED TUBE FEEDS . JEREZ IN SITU. WILL ENDORSED TO INCOMING NIGHT NURSE WITH PINKISH -REDDISH OUTPUT. STILL WITH MILD WHEEZING,NOT IN ANY DISTRESS. CONTINUE TO MONITOR.
--- NOTE | 2018-09-11 19:00 | NUR ---
NEW ORDER: SPOKE WITH DR STEWART AND RELAYED URINE CULTURE RESULTS,MDRO/3RD GRADE READING TEACHER IN URINE,WITH ORDERS PLACED ON CONTACT ISOLATION,DC IV ZOSYN,START AMIKACIN PER PHARMACY DOSE.PINKISH-REDDISH URINE OUTPUT ,WITH ORDERS TO MONITOR URINE FOR ANY ACTIVE BLEEDING.PATIENT DNR.
--- NOTE | 2018-09-11 19:01 | NUR ---
CONSULTATION PAGED/CALLED Reason for Consultation: MDRO / CRU IN URINE Person Who was Notified: OSMAN Consulting Physician: KAUSHIK Corporate Compliance Manager Specialty: ID Ordering Physician: PAT
--- NOTE | 2018-09-11 19:27 | NUR ---
INITIAL NOTES RECEIVED HANDOFF REPORT FROM OFFGOING NURSE AT THE BEDSIDE. PATIENT IS AWAKE AND ALERT, RESTING COMFORTABLY IN BED. NO SOB, NO ACUTE DISTRESS, NO COMPLAINTS OF PAIN AT THIS TIME. BED IS LOCKED, IN THE LOWEST POSITION, 2X SIDE RAILS UP, BED ALARM IS ON. CALL LIGHT IS WITHIN REACH. ENCOURAGED PATIENT TO CALL FOR ASSISTANCE. WILL CONTINUE WITH PLAN OF CARE.
[2018-09-11 20:00] VITALS: BP_SYST 147
--- NOTE | 2018-09-11 20:00 | NUR ---
PATIENT'S OXYGEN SATURATION AT 75%-80% ON 2L NC. INCREASED O2 TO 3LNC, AND ENCOURAGED PATIENT TO TAKE DEEP BREATHS. PATIENT'S O2 SATURATION NOW AT 95% AND STABLE. WILL CONTINUE TO MONITOR CLOSELY.
[2018-09-11] MEDS ORDERED: AMIKACIN SULFATE 1000 MG/4 ML VIAL ONE (21:15)
[2018-09-11] MEDS: AMIKACIN SULFATE 500 MG in NS 100 ML IV SCH (21:16)
--- NOTE | 2018-09-11 22:00 | NUR ---
PATIENT RESTING COMFORTABLY IN BED, AWAKE. AOX1, CONFUSED. NO SOB, NO ACUTE DISTRESS, NO COMPLAINTS OF PAIN. ASSISTED PATIENT WITH PARTIAL BED BATH, BECAUSE PATIENT SOILED SELF. PATIENT IS NOW CLEAN AND DRY, RESTING COMFORTABLY IN BED. BED IS LOCKED, IN THE LOWEST POSITION, 2X SIDE RAILS UP, BED ALARM IS ON. CALL LIGHT WITHIN REACH. ENCOURAGED PATIENT TO CALL FOR ASSISTANCE.
[2018-09-11 23:42] VITALS: BP_SYST 134
--- NOTE | 2018-09-11 23:56 | NUR ---
PATIENT RESTING COMFORTABLY IN BED. EYES CLOSED. BREATHING EVEN AND UNLABORED, VISIBLE CHEST RISE AND FALL NOTED. NO SOB, NO ACUTE DISTRESS, NO SIGNS OF PAIN OR FACIAL GRIMACING. IV SITE INTACT, DRESSING CLEAN AND DRY, SALINE LOCKED. BED IS LOCKED, IN THE LOWEST POSITION, 2X SIDE RAILS UP, BED ALARM IS ON. CALL LIGHT WITHIN REACH.
[2018-09-12] MEDS: APIXABAN 2.5 MG TABLET GT SCH ×2 (00:45→08:53)
--- NOTE | 2018-09-12 03:17 | NUR ---
INCONTINENCE CARE PROVIDED TO THE PATIENT. PATIENT IS NOW CLEAN AND DRY, RESTING COMFORTABLY IN BED. BED IS LOCKED, IN THE LOWEST POSITION, 2X SIDERAILS UP, BED ALARM IS ON. CALL LIGHT IS WITHIN REACH.
--- NOTE | 2018-09-12 04:30 | NUR ---
PATIENT COMPLAINED OF DIFFICULTY BREATHING. OXYGEN SATURATION AT 99%. RT NOTIFIED, AND RT APPLIED ON BIPAP MACHINE FOR THE PATIENT. PATIENT VERBALIZED RELIEF OF SOB. CALL LIGHT WITHIN REACH. ENCOURAGED PATIENT TO CALL FOR ASSISTANCE.
[2018-09-12] MEDS: LEVOTHYROXINE SODIUM 0.05 MG TABLET GT SCH (06:01)
[2018-09-12] MEDS: methylPREDNISolone SOD SUCC/PF 62.5 MG/ML VIAL IVP SCH (06:01)
[2018-09-12] MEDS: INSULIN LISPRO SLIDING SCALE 100 UNITS/ML VIAL (humaLOG) SUBCUT PRN (06:12)
[2018-09-12 06:24] LABS: BASOPHILS % (AUTO) 0.1 % (0.0-2.0); HEMOGLOBIN 9.6 g/dL (12.0-16.0); LYMPHOCYTES # (AUTO) 1.2 K/uL (1.0-5.5); LYMPHOCYTES % (AUTO) 20.7 % (20.5-51.5); MEAN CORPUSCULAR HEMOGLOBIN 28 pg (27-31); MEAN CORPUSCULAR HGB CONC 32 % (32-36); MEAN CORPUSCULAR VOLUME 87 fL (79.0-98.0); MONOCYTES # (AUTO) 0.4 K/uL (0.0-1.0); MONOCYTES % (AUTO) 6.8 % (1.7-9.3); NEUTROPHILS # (AUTO) 4.1 K/uL (1.8-7.7); NEUTROPHILS % (AUTO) 72.4 % (40.0-70.0); PLATELET COUNT (AUTO) 127 K/uL (130-430); RED BLOOD CELL COUNT(AUTO) 3.46 MIL/uL (4.2-6.2); RED CELL DISTRIBUTION WIDTH 22.2 % (9.0-15.0); WHITE BLOOD COUNT (AUTO) 5.7 K/uL (4.8-10.8)
[2018-09-12 06:37] LABS: ANION GAP 6 (5-15); CALCIUM 8.1 mg/dL (8.4-11.0); CHLORIDE 108 mmol/L (98-107); CREATININE 1.08 mg/dL (0.55-1.30); GLUCOSE 152 mg/dL (70-99); POTASSIUM 3.8 mmol/L (3.5-5.1); SODIUM SERUM 145 mmol/L (136-145); UREA NITROGEN, BLOOD 39 mg/dL (8-21)
--- NOTE | 2018-09-12 06:42 | NUR ---
CLOSING NOTES PATIENT IS AWAKE, RESTING COMFORTABLY IN BED. CURRENTLY ON BIPAP, SETTINGS PER MD ORDER. NO SOB, NO ACUTE DISTRESS, NO COMPLAINTS OF PAIN AT THIS TIME. IV SITE INTACT, DRESSING CLEAN AND DRY, SALINE LOCKED. GTUBE FEEDING INFUSING GLUCERNA 1.2 @ 55ML/HR PER MD ORDER. BED IS LOCKED, IN THE LOWEST POSITION, 2X SIDE RAILS UP, BED ALARM IS ON. CALL LIGHT IS WITHIN REACH. ENCOURAGED PATIENT TO CALL FOR ASSISTANCE. FALL, SAFETY, SEIZURE PRECAUTIONS MAINTAINED. ALL NEEDS HAVE BEEN MET DURING THIS SHIFT. WILL ENDORSE CARE TO ONCOMING DAYSHIFT NURSE.
[2018-09-12 08:00] VITALS: BP_SYST 161
--- NOTE | 2018-09-12 08:00 | NUR ---
OPENING NOTES patient received resting in bed A&O x1, breathing is even and unlabored on 3L nasal cannula, patient denies any acute distress or pain at this time, meneses catheter draining blood tinged urine, educated patient on plan of care and call light system, will continue to monitor, safety precautions in place, seizure precautions in place, contact precautions in place, call light within reach.
[2018-09-12] MEDS: SERTRALINE HCL 50 MG TABLET GT SCH (08:51)
[2018-09-12] MEDS: FUROSEMIDE 20 MG/2 ML VIAL IVP SCH (08:54)
[2018-09-12] MEDS: MEMANTINE HCL 5 MG TABLET GT SCH (08:54)
[2018-09-12] MEDS: metFORMIN HCL 500 MG TABLET PO SCH ×2 (08:55→17:15)
[2018-09-12] MEDS: CARVEDILOL 12.5 MG TABLET (COREG) PO SCH (08:55)
[2018-09-12] MEDS: LevETIRAcetam 500 MG/5 ML UDC ORAL LIQUID GT SCH (08:55)
[2018-09-12] MEDS: DOCUSATE SODIUM 250 MG CAPSULE PO SCH (08:56)
[2018-09-12] MEDS: ASCORBIC ACID 500 MG TABLET GT SCH (08:56)
[2018-09-12 09:45] VITALS: BP_SYST 161
[2018-09-12] MEDS: IPRATROPIUM/ALBUTEROL SULFATE 3 ML AMPUL.NEB (DUONEB) INH SCH ×3 (09:45→20:08)
--- NOTE | 2018-09-12 10:07 | NUR ---
NOTES patient is resting in bed with eyes closed, no acute distress or pain is noted at this time, breathing is even and unlabored on 3L nasal cannula, tube feeding running with no signs of n/v, meneses catheter draining well by gravity, will continue to monitor, safety precautions in place, seizure precautions in place, contact precautions in place, call light within reach.
--- NOTE | 2018-09-12 11:53 | NUR ---
BLOOD SUGAR IS 120 AT THIS TIME, NO INSULIN COVERAGE NEEDED PER SLIDING SCALE.
[2018-09-12 12:56] VITALS: BP_SYST 175
[2018-09-12 13:44] VITALS: BP_SYST 155
--- NOTE | 2018-09-12 14:30 | NUR ---
NOTES wound care performed on patient, patient cleaned for episode of incontinence, patient turned and repositioned for comfort, patient tolerated well, breathing is even and unlabored on 3L nasal cannula, will continue to monitor, safety precautions in place, seizure precautions in place, contact precautions in place, call light within reach.
--- NOTE | 2018-09-12 15:05 | NUR ---
Nutrition F/U Admitting Diagnosis Aspiration pneumonia Reviewed Pertinent Medical/Surgical Hx Medical Record Patient Other Medical History Comment: PMH per MD note: HTN, seizure disorder, hypothyroidism, Alzheimers dementia, depression Updated per MD note: aspiration pneumonia, dysphagia, type 2 myocardial infarction, DM, chronic heart failure, UTI Updated per MD note 09/12: Systolic CHF, severe aortic stenosis, acute bronchospasm/COPD, aspiration pneumonia, dysphagia, DM, UTI Subjective Information Pt seen resting in bed w/ TF infusing at 55ml/hour upon visit. Previous TF recommendation was implemented since last visit. Bed wt recorded at 144 lbs. Per RN, pt is tolerating TF well and glucose levels have decreased with management. Per pt, she is not experiencing any N/V; however, she is experiencing diarrhea today. Per EMR, I/O: 860/750 +110 ml; TF 660 ml; Current TF provides 1584 kcal, 79 g Pro, and 1063 ml free water per day which provides 96% of the lower end of estimated caloric needs and 95% of the lower end of estimated protein needs. Current Diet Order/Nutrition Support TF via G-tube Glucerna 1.2 55 ml for 24 hr per day; Free water flush 50 ml Q6H Patient/Significant Other Unable To Verbalize Education Provided Not Indicated Pertinent Medications Lasix, solu-medrol, zoloft, vit C, glucophage, synthroid, keppra, colace Pertinent Labs BG 152 H, POC BG 159 H, BUN 39 H, K 3.8 L, H/H 9.6 L/30 L Height (Feet) 5 feet Height (Inches) 4.00 inches Weight (Pounds) 143 pounds Weight (Calculated Kilograms) 64.189096 kilograms Patient Weight 64.864 kg Body Mass Index 24.54 kg/m2 %IBW [address] [place]/Adjusted Body Weight IBW: 120 lbs, 55 kg Recent Weight Change No - Unable to verify Weight Status Appropriate Gastrointestinal Symptoms None Last BM Sep 12, 2018 Difficulty With: Swallowing Food Allergies Unable to verify Usual Diet At Home TF via G-tube Skin Integrity Comment: Herbert Score: 15 Per archives specialist note 09/09/18: Right Sacral area: Reopened scar tissue from a wound of prior unknown etiology, present on admission; Bilateral lower buttocks/Perianal area:IAD with moisture associated skin damage, present on admission; Left lateral foot: Blanchable redness, present on admission. Current % PO TF Estimated Energy Expenditure (kcals/day) 8627-4067 kcal/day (30-35 kcal/kg IBW for wound healing) Estimated Protein Required (g/day) 66-83 g/day (1.2-1.5 g/kg IBW for wound healing) Estimated Fluid Required (l/day) Per MD d/t CHF Problem/Etiology/Signs/Symptoms Increased nutritional needs related to metabolic demands as evidenced by estimated nutritional requirements for wound healing. *ongoing Expected Outcomes/Goals - Monitor pt tolerance of TF w/ goal of pt meeting at least 85% of estimated nutritional needs, labs trending WNL, skin integrity, and wt maintenance. Dietitian Recommendations * Recommend continuing Glucerna 1.2 at 55 ml/hr x24 hours, which provides 1584 kcal, 79 g Pro, and 1063 ml free water per day * Continue free water flush per MD d/t CHF TF provides 96% of the lower end estimated caloric needs and 95% of the upper end estimated protein needs. Follow Up Moderate Risk: F/U in 3-5 days Signed: 09/12/18 at 1505 by Ivis CONTRERAS <Co-Signature Required> Co-Signed: 09/12/18 at [address]
--- NOTE | 2018-09-12 15:43 | NUR ---
notes- assumed care from Timmy BRAVO. Patient in bed, awake. no acute distress noted. safety precaution observed. will monitor.
--- NOTE | 2018-09-12 16:07 | NUR ---
Dietitian Recommendations * Recommend continuing Glucerna 1.2 at 55 ml/hr x24 hours, which provides 1584 kcal, 79 g Pro, and 1063 ml free water per day * Continue free water flush per MD d/t CHF TF provides 96% of the lower end estimated caloric needs and 95% of the upper end estimated protein needs. LP, RD Please refer to Nutrition F/U for details.
[2018-09-12 17:12] VITALS: BP_SYST 141
--- NOTE | 2018-09-12 17:13 | NUR ---
ROUNDS SEEN BY DR. MOREIRA AT BEDSIDE
--- NOTE | 2018-09-12 18:48 | NUR ---
notes- In bed, resting. no acute distress noted. tolerating feeding well. still waiting for bed at [facility]. will endorse
[2018-09-12 19:00] VITALS: BP_SYST 145
[2018-09-13] MEDS: AMIKACIN SULFATE 500 MG in NS 100 ML IV SCH ×2 (00:24→22:26)
[2018-09-13] MEDS: LevETIRAcetam 500 MG/5 ML UDC ORAL LIQUID GT SCH ×3 (00:24→22:41)
[2018-09-13] MEDS: metroNIDAZOLE 500 mg/NS 100 ML IV SCH ×3 (00:26→23:34)
[2018-09-13] MEDS: FUROSEMIDE 20 MG/2 ML VIAL IVP SCH (00:26)
[2018-09-13] MEDS: DOCUSATE SODIUM 250 MG CAPSULE PO SCH ×3 (00:27→22:36)
[2018-09-13] MEDS: methylPREDNISolone SOD SUCC 40 MG/ML VIAL IVP SCH ×3 (00:27→22:37)
[2018-09-13] MEDS: CARVEDILOL 12.5 MG TABLET (COREG) PO SCH ×3 (00:28→22:36)
[2018-09-13 01:36] VITALS: BP_SYST 135
[2018-09-13 05:30] LABS: BASOPHILS % (AUTO) 0.1 % (0.0-2.0); EOSINOPHILS % (AUTO) 0.1 % (0.0-4.0); HEMOGLOBIN 9.5 g/dL (12.0-16.0); LYMPHOCYTES # (AUTO) 1.2 K/uL (1.0-5.5); LYMPHOCYTES % (AUTO) 15.7 % (20.5-51.5); MEAN CORPUSCULAR HEMOGLOBIN 28 pg (27-31); MEAN CORPUSCULAR HGB CONC 32 % (32-36); MEAN CORPUSCULAR VOLUME 88 fL (79.0-98.0); MONOCYTES # (AUTO) 0.5 K/uL (0.0-1.0); MONOCYTES % (AUTO) 6.2 % (1.7-9.3); NEUTROPHILS # (AUTO) 5.8 K/uL (1.8-7.7); NEUTROPHILS % (AUTO) 77.9 % (40.0-70.0); PLATELET COUNT (AUTO) 125 K/uL (130-430); RED CELL DISTRIBUTION WIDTH 23.4 % (9.0-15.0); WHITE BLOOD COUNT (AUTO) 7.4 K/uL (4.8-10.8)
[2018-09-13] MEDS: LEVOTHYROXINE SODIUM 0.05 MG TABLET GT SCH (05:40)
[2018-09-13 05:45] LABS: ANION GAP 2 (5-15); CALCIUM 8.5 mg/dL (8.4-11.0); CHLORIDE 109 mmol/L (98-107); CREATININE 1.02 mg/dL (0.55-1.30); GLUCOSE 126 mg/dL (70-99); SODIUM SERUM 144 mmol/L (136-145); UREA NITROGEN, BLOOD 41 mg/dL (8-21)
--- NOTE | 2018-09-13 06:45 | NUR ---
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 i have suctioned the pt w/in the shift;prn.call light/telephone placed w/in the reach of the pt. .
[2018-09-13] MEDS: IPRATROPIUM/ALBUTEROL SULFATE 3 ML AMPUL.NEB (DUONEB) INH SCH ×3 (07:50→20:28)
[2018-09-13 08:00] VITALS: BP_SYST 146
--- NOTE | 2018-09-13 08:00 | NUR ---
Opening Note Report received from [facility] shift nurse. Patient is awake and is able to talk. However, she is immobile with contractions on the left upper extremity. Seizure and isolation precautions are in place. Current O2 sat is 98% on 3l via NC. G-tube is running Glucerna @50. IV is on the RFA 22g, SL. Ny cath is draining pinkish urine. Bed is locked and in the lowest position. Will continue to monitor
[2018-09-13] MEDS: ASCORBIC ACID 500 MG TABLET GT SCH (09:06)
[2018-09-13] MEDS: MEMANTINE HCL 5 MG TABLET GT SCH (09:06)
[2018-09-13] MEDS: metFORMIN HCL 500 MG TABLET PO SCH ×2 (09:06→17:08)
[2018-09-13] MEDS: SERTRALINE HCL 50 MG TABLET GT SCH (09:07)
[2018-09-13] MEDS: APIXABAN 2.5 MG TABLET GT SCH ×3 (09:10→22:58)
--- NOTE | 2018-09-13 10:20 | NUR ---
Rounds Patient was cleaned and turned, tolerated well.
--- NOTE | 2018-09-13 10:46 | NUR ---
Case mgt: I called Lance at [facility] [phone]--no isolation bed available yet. He has transfer packet-- RN
--- NOTE | 2018-09-13 12:10 | NUR ---
H2O Flush Flushed G-tube with 50ml of water per MD order.
[2018-09-13 12:58] VITALS: BP_SYST 133
--- NOTE | 2018-09-13 14:20 | NUR ---
Wound Care Changed sacral dressing. Cleansed area with NS, Z-gaurd applied, and covered with foam dressing. Patient tolerated well.
--- NOTE | 2018-09-13 16:21 | NUR ---
Rounds Patient is resting in bed. No signs of distress noted. Bed is locked and in the lowest position.
[2018-09-13 17:46] VITALS: BP_SYST 159
--- NOTE | 2018-09-13 17:52 | NUR ---
H20 flush Flushed G-tube with 50ml H20 per MD order. No residuals from g-tube.
--- NOTE | 2018-09-13 18:26 | NUR ---
Closing Note Patient has been stable throughout the shift. Aspiration, seizure, and contact precautions remain in place. G-tube is running Glucerna @55. Ny cath is in place draining pink tinged urine. IV is on the RFA 22g, SL. O2 is @3L via NC. Call light is within reach and bed is in the lowest position. Will endorse care to the oncoming nurse.
--- NOTE | 2018-09-13 19:45 | NUR ---
CHANGE OF SHIFT; pt. awake, alert but disoriented, follows simple commands. 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 pt. able to communicate verbally, left sided weakness. safety measures observed, side rails up, bed alarm on, call light within reach.
--- NOTE | 2018-09-13 20:30 | NUR ---
NOTES: pt. on g tube feeding with Glucerna 1.2 @ 55 cc/hr.,checked residual is 0. pt. with O2 @ 3l/nc., HOB elevated. endorsed swallow eval done, seen pt. drinking water and able to tolerate, no coughing noted. left sided weakness due to stroke. pt. with meneses cath to OSD with yellow urine output. VS checked, afebrile.
[2018-09-13 21:00] VITALS: BP_SYST 159
--- NOTE | 2018-09-13 23:00 | NUR ---
NOTES: due meds given per g tube. BS checked 95 , no sliding scale coverage. continue tube feeding.
--- NOTE | 2018-09-14 | NUR ---
NOTES: pt. repositioned, turn to sides. on seizure and fall precautions.
[2018-09-14 01:28] VITALS: BP_SYST 134
--- NOTE | 2018-09-14 02:45 | NUR ---
NOTES: pt. sleeping, in no acute distress. continue to monitor.
--- NOTE | 2018-09-14 05:00 | NUR ---
NOTES: pt. checked and sleeping, was repositioned earlier. in no distress. continuous g tube feeding. observed contact isolation.
[2018-09-14 06:11] LABS: BASOPHILS % (AUTO) 0.1 % (0.0-2.0); EOSINOPHILS % (AUTO) 0.1 % (0.0-4.0); HEMATOCRIT 30.9 % (36-48); HEMOGLOBIN 9.8 g/dL (12.0-16.0); LYMPHOCYTES # (AUTO) 1.5 K/uL (1.0-5.5); LYMPHOCYTES % (AUTO) 18.8 % (20.5-51.5); MEAN CORPUSCULAR HEMOGLOBIN 28 pg (27-31); MEAN CORPUSCULAR HGB CONC 32 % (32-36); MEAN CORPUSCULAR VOLUME 88 fL (79.0-98.0); MONOCYTES # (AUTO) 0.2 K/uL (0.0-1.0); MONOCYTES % (AUTO) 2.9 % (1.7-9.3); NEUTROPHILS # (AUTO) 6.2 K/uL (1.8-7.7); NEUTROPHILS % (AUTO) 78.1 % (40.0-70.0); PLATELET COUNT (AUTO) 126 K/uL (130-430); RED BLOOD CELL COUNT(AUTO) 3.51 MIL/uL (4.2-6.2)
[2018-09-14 06:14] LABS: CHLORIDE 108 mmol/L (98-107); POTASSIUM 4.1 mmol/L (3.5-5.1); SODIUM SERUM 138 mmol/L (136-145)
[2018-09-14 06:15] LABS: CALCIUM 8.4 mg/dL (8.4-11.0); CREATININE 0.94 mg/dL (0.55-1.30); GLUCOSE 144 mg/dL (70-99); UREA NITROGEN, BLOOD 38 mg/dL (8-21)
[2018-09-14 06:29] LABS: ANION GAP < 3 (5-15)
--- NOTE | 2018-09-14 06:30 | NUR ---
CLOSING NOTES; pt. sleeping, due am care done, repositioned. IV lock intact. G tube continuous @ 55 cc/hr. , site clean, on air mattress. meneses cat patent to OSD with yellow urine output. contact isolation observed. for further care and observation, will endorse to day shift for continuity of care.
[2018-09-14] MEDS: LEVOTHYROXINE SODIUM 0.05 MG TABLET GT SCH (06:54)
[2018-09-14 08:00] VITALS: BP_SYST 138
--- NOTE | 2018-09-14 08:00 | NUR ---
RN OPENING NOTE PATIENT IS RESTING ON BED, ALERT ORIENTED X4, PATIENT WAS ASSESSED, VITAL SIGNS ARE STABLE. PATIENT DENIES PAIN OR DISCOMFORT. PATIENT IS ON TUBE FEEDING, RESIDUAL OF THE G TUBE FEEDING IN ZERO. PATIENT'S BED AT LOW POSITION AND CALL LIGHT WITHIN REACH, WILL PASS MED AT 0900
[2018-09-14] MEDS: IPRATROPIUM/ALBUTEROL SULFATE 3 ML AMPUL.NEB (DUONEB) INH SCH ×3 (09:00→20:05)
--- NOTE | 2018-09-14 10:00 | NUR ---
RN NOTE PATIENT WAS REPOSITIONED IN BED, PATIENT FELT SHORT OF BREATH, BUT O2 SAT WAS 95% RT WAS CALLED FOR THE PATIENT. PATIENT WAS GIVEN HER MEDICATION, PATIENT FELT BETTER AFTER THE TREATMENT, WILL CONTINUE TO MONITOR.
[2018-09-14] MEDS: MEMANTINE HCL 5 MG TABLET GT SCH (10:31)
[2018-09-14] MEDS: DOCUSATE SODIUM 250 MG CAPSULE PO SCH ×2 (10:31→21:25)
[2018-09-14] MEDS: methylPREDNISolone SOD SUCC 40 MG/ML VIAL IVP SCH ×2 (10:31→21:25)
[2018-09-14] MEDS: ASCORBIC ACID 500 MG TABLET GT SCH (10:31)
[2018-09-14] MEDS: metroNIDAZOLE 500 mg/NS 100 ML IV SCH ×2 (10:31→21:33)
[2018-09-14] MEDS: SERTRALINE HCL 50 MG TABLET GT SCH (10:32)
[2018-09-14] MEDS: metFORMIN HCL 500 MG TABLET PO SCH ×2 (10:32→18:21)
[2018-09-14] MEDS: FUROSEMIDE 20 MG/2 ML VIAL IVP SCH (10:34)
[2018-09-14] MEDS: LevETIRAcetam 500 MG/5 ML UDC ORAL LIQUID GT SCH ×2 (10:34→21:35)
[2018-09-14] MEDS: APIXABAN 2.5 MG TABLET GT SCH ×2 (10:38→21:27)
[2018-09-14] MEDS: IPRATROPIUM/ALBUTEROL SULFATE 3 ML AMPUL.NEB (DUONEB) INH PRN (10:38)
[2018-09-14] MEDS: CARVEDILOL 12.5 MG TABLET (COREG) PO SCH ×2 (10:47→21:26)
--- NOTE | 2018-09-14 12:00 | NUR ---
RN NOTE PATIENT IS RESTING ON BED, PATIENT WAS REPOSITIONED. PATIENT BLOOD SUGAR WAS MEASURED TO BE 130 MG/DL, PATIENT GOT NO COVERAGE. PATIENT RESIDUAL OF THE FEEDING TUBE IS ZERO. PATIENT G TUBE WAS FLUSHED WITH 50 ML OF WATER. PATIENT WAS GIVEN HER IVPB OF ANTIBIOTICS. WILL CONTINUE TO MONITOR.
[2018-09-14 12:02] VITALS: BP_SYST 156
--- NOTE | 2018-09-14 14:00 | NUR ---
RN NOTE PATIENT IS RESTING IN BED, DENIES PAIN OR DISCOMFORT,PATIENT WAS REPOSITIONED, WILL CONTINUE TO MONITOR.
[2018-09-14] MEDS ORDERED: FUROSEMIDE 20 MG/2 ML VIAL IVP ONE (15:00)
--- NOTE | 2018-09-14 16:00 | NUR ---
RN NOTE PATIENT IS RESTING IN BED, DENIES PAIN OR DISCOMFORT,PATIENT WAS REPOSITIONED, FREE WATER WAS GIVEN THROUGH THE G TUBE. NO G TUBE RESIDUE, WILL CONTINUE TO MONITOR.
[2018-09-14 16:02] VITALS: BP_SYST 148
--- NOTE | 2018-09-14 18:00 | NUR ---
RN NOTE PATIENT IS RESTING IN BED, DENIES PAIN OR DISCOMFORT,PATIENT WAS REPOSITIONED, PATIENT'S BLOOD SUGAR WAS MEASURED TO BE 1321 MG/DL, PATIENT GOT NO COVERAGE, PATIENT WAS GIVEN HER MEDICINE, G TUBE FEEDING IS RUNNING PRESCRIBED WILL CONTINUE TO MONITOR AND WILL ENDORSE TO NEXT SHIFT. .
--- NOTE | 2018-09-14 19:20 | NUR ---
CHANGE OF SHIFT; pt. 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 g tube feeding continuous @ 55 cc/hr. safety measures observed. call light at bedside.
[2018-09-14] MEDS: AMIKACIN SULFATE 500 MG in NS 100 ML IV SCH (20:27)
[2018-09-14 20:45] VITALS: BP_SYST 141
--- NOTE | 2018-09-14 21:35 | NUR ---
NOTES: pt. awakened to give medications per g tube. complete hs care done and yvan care. pt. had large loose brown bowel movement. repositioned on her side. pt. been asking for H2O, small ice chips given and tolerated well,kept HOB elevated.
--- NOTE | 2018-09-14 22:00 | NUR ---
NOTES: observed contact isolation. Left sided weakness due to stroke. checked G tube , no residual. HOB elevated. both hands pretty cool, contracted left hand, bruising on both arms.
--- NOTE | 2018-09-15 | NUR ---
NOTES: condition unchanged. pt. sleeping.
[2018-09-15 00:39] VITALS: BP_SYST 160
--- NOTE | 2018-09-15 03:00 | NUR ---
NOTES: pt. repositioned, turn to her sides. another small BM, kept clean and dry, Z guard on reddened skin areas.
--- NOTE | 2018-09-15 05:45 | NUR ---
NOTES: repositioned, continue g tube feed, checked residual 0, H2O flush given, total 100 cc. IV site patent for IV antibiotic. meneses cath intact. skin care done , applied Z guard on sacral area.
[2018-09-15] MEDS: LEVOTHYROXINE SODIUM 0.05 MG TABLET GT SCH (06:18)
[2018-09-15] MEDS: INSULIN LISPRO SLIDING SCALE 100 UNITS/ML VIAL (humaLOG) SUBCUT PRN (06:31)
--- NOTE | 2018-09-15 06:45 | NUR ---
CLOSING NOTES; pt. condition unchanged. BS checked 169, with sliding scale coverage given. observed contact isolation, for further care and assistance.call light within reach.
[2018-09-15 06:59] LABS: ANION GAP 6 (5-15); CALCIUM 8.4 mg/dL (8.4-11.0); CHLORIDE 105 mmol/L (98-107); CREATININE 0.96 mg/dL (0.55-1.30); GLUCOSE 172 mg/dL (70-99); POTASSIUM 4.3 mmol/L (3.5-5.1); SODIUM SERUM 143 mmol/L (136-145); UREA NITROGEN, BLOOD 38 mg/dL (8-21)
--- NOTE | 2018-09-15 07:35 | NUR ---
OPENING NOTE Patient resting in the bed. No acute distress. Respiration even and unlabored. Alert, awake, verbally responsive with confusion and forgetful. Skin warm and dry to touch. SL intact to RFA, no redness, no swelling. G-tube intact, patent, on Glucerna 1.2 at 55ml.hr. HOB elevated. F/C intact, drain gravity with yellow urine. On contact isolation. Safety measure maintained. Call light within reached. Bed locked in low position, padded side rails up, bed alarm on. Will continue to monitor.
[2018-09-15 08:00] VITALS: BP_SYST 152
[2018-09-15 08:40] VITALS: BP_SYST 160
[2018-09-15] MEDS: LevETIRAcetam 500 MG/5 ML UDC ORAL LIQUID GT SCH ×2 (08:56→21:46)
[2018-09-15] MEDS: metFORMIN HCL 500 MG TABLET PO SCH ×2 (08:56→17:50)
[2018-09-15] MEDS: MEMANTINE HCL 5 MG TABLET GT SCH (08:56)
[2018-09-15] MEDS: ASCORBIC ACID 500 MG TABLET GT SCH (08:56)
[2018-09-15] MEDS: APIXABAN 2.5 MG TABLET GT SCH ×2 (08:58→21:49)
[2018-09-15] MEDS: CARVEDILOL 12.5 MG TABLET (COREG) PO SCH ×2 (08:58→21:48)
[2018-09-15] MEDS: methylPREDNISolone SOD SUCC 40 MG/ML VIAL IVP SCH (08:59)
[2018-09-15] MEDS: DOCUSATE SODIUM 250 MG CAPSULE PO SCH ×2 (09:00→21:00)
[2018-09-15] MEDS: SERTRALINE HCL 50 MG TABLET GT SCH (09:00)
[2018-09-15] MEDS: FUROSEMIDE 20 MG/2 ML VIAL IVP SCH (09:01)
--- NOTE | 2018-09-15 09:02 | NUR ---
SEEN AND EXAMINED BY ABRAN BHAKTA.
[2018-09-15] MEDS: IPRATROPIUM/ALBUTEROL SULFATE 3 ML AMPUL.NEB (DUONEB) INH SCH ×3 (09:24→20:05)
[2018-09-15] MEDS: metroNIDAZOLE 500 mg/NS 100 ML IV SCH ×2 (09:54→23:04)
--- NOTE | 2018-09-15 10:00 | NUR ---
IV RE-INSERTION: Complaining of pain to IV site and leakage noted. Restarted on LFA, gauge 22 with good blood return. Flushed with NS . Successful after one attempt. Administered Flagyl at this time. Will observe for any signs of infiltration.
--- NOTE | 2018-09-15 10:43 | NUR ---
Discharge Planning: DCP spoke to Alex at [facility] (f [phone] p [phone]) no isolation accommodations for patient at this time. Alex stated he would reach out to Dr Nance.
--- NOTE | 2018-09-15 11:33 | NUR ---
RECEIVED CALL FROM DR. STEWART GREYSON Per Dr. Stewart to notify him when bed available from SNF.
[2018-09-15 12:23] VITALS: BP_SYST 137
--- NOTE | 2018-09-15 13:25 | NUR ---
ROUND Patient resting in the bed. No acute distress. HOB elevated. Continue on GT feeding. F/C intact, drain gravity. Safety measure maintained. Call light within reached. Continue to monitor.
--- NOTE | 2018-09-15 15:55 | NUR ---
ROUND Patient resting in the bed comfortable. No acute distress. HOB elevated. Continue on GT feeding. F/C intact, drain gravity. Continue on contact isolation. Safety measure maintained. Bed locked in low position, padded side rails up, bed alarm on. Call light within reached. Continue to monitor.
[2018-09-15 16:41] VITALS: BP_SYST 131
[2018-09-15] MEDS: PREDNISONE 20 MG TABLET PO SCH (17:50)
--- NOTE | 2018-09-15 18:52 | NUR ---
CLOSING NOTE Patient resting in the bed. No acute distress. Respiration even and unlabored noted. Skin warm and dry to touch. SL intact to RFA, no redness, no swelling. G-tube intact, patent, on Glucerna 1.2 at 55ml/hr, infusing well. No N/V or s/s of aspiration noted. HOB elevated. F/C intact, drain gravity with yellow urine. On contact isolation. All needs met. Hourly rounding during shift. No seizure activity noted during shift. Safety measure maintained. Call light within reached. Bed locked in low position, padded side rails up, bed alarm on. Will endorse to night nurse.
--- NOTE | 2018-09-15 19:20 | NUR ---
PT WAS RECEIVED IN BED AWAKE AND ORIENTED TO HER NAME AND PLACE ONLY. NO ACUTE DISTRESS NOTED. PT IS REQUESTING WATER BY MOUTH AND WAS INFORMED SHE IS NOTHING BY MOUTH. GT FEEDING OF GLUCERNA 1.2 IS INFUSING WELL AT 55ML/HR AND WELL TOLERATED BY PT. FALL, SEIZURE AND SAFETY PRECAUTIONS ARE IN PLACE.
[2018-09-15 20:00] VITALS: BP_SYST 159
[2018-09-15] MEDS: AMIKACIN SULFATE 500 MG in NS 100 ML IV SCH (21:45)
--- NOTE | 2018-09-15 21:45 | NUR ---
ACCUCHECK 118 AND NO INSULIN COVERAGE NEEDED. SKIN REMAINS WARM AND DRY TO TOUCH. GT FEEDING IS IN PROGRESS AT 55ML/HR.
--- NOTE | 2018-09-15 23:30 | NUR ---
PT IS RESTING COMFORTABLY IN BED AND TOLERATING G TUBE FEEDING WELL. FALL AND SAFETY PRECAUTIONS ARE IN PLACE.
[2018-09-16] VITALS: BP_SYST 142
--- NOTE | 2018-09-16 01:30 | NUR ---
PT IS SLEEPING WITHOUT ANY DISTRESS. G TUBE FEEDING IS IN PROGRESS. FALL AND SAFETY PRECAUTIONS ARE IN PLACE.
--- NOTE | 2018-09-16 03:00 | NUR ---
PT IS SLEEPING WITHOUT ANY DISTRESS NOTED. GT FEEDING IS INFUSING WELL AT 55ML/HR. FALL AND SAFETY PRECAUTIONS ARE IN PLACE.
--- NOTE | 2018-09-16 05:10 | NUR ---
PT IS TOLERATING G TUBE FEEDING WELL. NO C/O PAIN OR DISCOMFORT.
[2018-09-16] MEDS: LEVOTHYROXINE SODIUM 0.05 MG TABLET GT SCH (06:34)
--- NOTE | 2018-09-16 06:47 | NUR ---
PT IS AWAKE AND RESTING COMFORTABLY IN BED. ALL PT'S NEEDS WERE ATTENDED TO. NO FALL OR INJURY OR SEIZURE ACTIVITY NOTED THIS SHIFT. G TUBE FEEDING IS IN PROGRESS AT 55ML/HR. FALL, SEIZURE AND SAFETY PRECAUTIONS ARE IN PLACE. ACCUCHECK 111 THIS AM AND NO INSULIN COVERAGE NEEDED. SKIN REMAINS WARM AND DRY TO TOUCH. WILL ENDORSE TO DAY SHIFT NURSE.
--- NOTE | 2018-09-16 08:00 | NUR ---
OPENING NOTE patient received resting in bed A&O x2, patient is awake and alert, breathing is even and unlabored on 2L nasal cannula, tube feeding running as ordered with no signs of aspiration or n/v, educated patient on plan of care and call light system, meneses catheter draining well by gravity, safety precautions in place, seizure precautions in place, contact precautions in place, call light within reach.
[2018-09-16 08:01] VITALS: BP_SYST 150
[2018-09-16] MEDS: IPRATROPIUM/ALBUTEROL SULFATE 3 ML AMPUL.NEB (DUONEB) INH SCH ×3 (08:05→21:20)
[2018-09-16] MEDS: MEMANTINE HCL 5 MG TABLET GT SCH (08:43)
[2018-09-16] MEDS: metFORMIN HCL 500 MG TABLET PO SCH ×2 (08:43→17:41)
[2018-09-16] MEDS: SERTRALINE HCL 50 MG TABLET GT SCH (08:43)
[2018-09-16] MEDS: ASCORBIC ACID 500 MG TABLET GT SCH (08:43)
[2018-09-16] MEDS: LevETIRAcetam 500 MG/5 ML UDC ORAL LIQUID GT SCH ×2 (08:44→21:31)
[2018-09-16] MEDS: PREDNISONE 20 MG TABLET PO SCH ×2 (08:45→17:41)
[2018-09-16] MEDS: FUROSEMIDE 20 MG/2 ML VIAL IVP SCH (08:45)
[2018-09-16] MEDS: CARVEDILOL 12.5 MG TABLET (COREG) PO SCH ×2 (08:45→21:32)
[2018-09-16] MEDS: metroNIDAZOLE 500 mg/NS 100 ML IV SCH ×2 (08:46→23:00)
[2018-09-16] MEDS: APIXABAN 2.5 MG TABLET GT SCH ×2 (08:48→21:33)
[2018-09-16] MEDS: DOCUSATE SODIUM 250 MG CAPSULE PO SCH ×2 (08:49→21:00)
--- NOTE | 2018-09-16 10:20 | NUR ---
NOTES patient is resting in bed with eyes closed, breathing is even and unlabored on 2L nasal cannula, no acute distress or pain is noted at this time, meneses catheter draining well by gravity, tube feeding running as ordered, will continue to monitor, safety precautions in place, seizure precautions in place, call light within reach.
--- NOTE | 2018-09-16 10:47 | NUR ---
Discharge Planning: DCP called [facility] (f [phone] p [phone]) lm for Anastasiia regarding pt discharge. ERROLP to follow up. Addendum: 09/16/18 at 1329 by Richard Diaz RN S/Shanita Johnson at [facility] to assist with finding other [facility] facility for placement. Alex [facility] , the pt. will need an isolation room. Gregorio Auguste and joan Dorado made aware. Addendum: 09/16/[address] DP JOAN faxed pt referral to [facility] ([phone] p [phone]), [facility] ([phone] p [phone]) DCP to follow up. Addendum: 09/16/[address]), [facility] (f [phone] p [phone]) DCP spoke to Awilda, DON needs to go over referral. Awilda stated no ISO beds available at this time.
--- NOTE | 2018-09-16 12:01 | NUR ---
BLOOD SUGAR is 103 at this time, no insulin coverage needed per sliding scale.
[2018-09-16 12:37] VITALS: BP_SYST 130
--- NOTE | 2018-09-16 14:25 | NUR ---
NOTES patient is resting in bed with eyes closed, patient is easily arousable to name, patient denies any acute distress or pain at this time, breathing is even and unlabored on 2L nasal cannula, will continue to monitor, safety precautions in place, call light within reach.
--- NOTE | 2018-09-16 16:35 | NUR ---
NOTES patient is resting in bed watching tv, patient denies any acute distress or pain, breathing is even and unlabored on 2L nasal cannula, tube feeding running as ordered, will continue to monitor, safety precautions in place, call light within reach.
[2018-09-16 16:50] VITALS: BP_SYST 126
--- NOTE | 2018-09-16 18:59 | NUR ---
CLOSING NOTE patient resting in bed A&O x2, patient is awake and alert, breathing is even and unlabored on 2L nasal cannula, tube feeding running as ordered with no signs of aspiration or n/v, educated patient on plan of care and call light system, meneses catheter draining well by gravity, safety precautions in place, seizure precautions in place, contact precautions in place, call light within reach, all needs were met throughout shift, will endorse report to oncoming nurse.
--- NOTE | 2018-09-16 19:25 | NUR ---
BEDSIDE REPORT WAS RECEIVED FROM DAY SHIFT NURSE. PT IS LYING COMFORTABLY IN BED AWAKE AND ORIENTED TO HER NAME AND PLACE ONLY. SKIN IS WARM AND DRY TO TOUCH. NO SIGNS OR SYMPTOMS OF HYPOGLYCEMIA OR HYPERGLYCEMIA NOTED. GT FEEDING OF GLUCERNA 1.2 IS INFUSING WELL AT 55ML/HR AND WELL TOLERATED BY PT. JEREZ CATH TO GRAVITY DRAINAGE IS DRAINING CLEAR YELLOWISH URINE. FALL, SEIZURE AND SAFETY PRECAUTIONS ARE IN PLACE.
[2018-09-16 20:00] VITALS: BP_SYST 158
--- NOTE | 2018-09-16 21:30 | NUR ---
ACCUCHECK 128 AND NO INSULIN COVERAGE NEEDED. SKIN REMAINS WARM AND DRY TO TOUCH. GT FEEDING IS INFUSING WELL AT 55ML/HR.
[2018-09-16] MEDS: AMIKACIN SULFATE 500 MG in NS 100 ML IV SCH (21:31)
--- NOTE | 2018-09-16 23:00 | NUR ---
PT IS RESTING COMFORTABLY IN BED AND TOLERATING G TUBE FEEDING WELL. HOB REMAINS ELEVATED. FALL AND SAFETY PRECAUTIONS ARE IN PLACE.
--- NOTE | 2018-09-17 00:30 | NUR ---
PT IS SLEEPING WITHOUT ANY DISTRESS NOTED. SALINE LOCK IS INTACT IN LFA. G TUBE FEEDING IS IN PROGRESS AT 55ML/HR WITH HOB ELEVATED 45 DEGREES. FALL AND SAFETY PRECAUTIONS ARE IN PLACE.
[2018-09-17 00:31] VITALS: BP_SYST 141
--- NOTE | 2018-09-17 02:30 | NUR ---
PT CONTINUES TO SLEEP COMFORTABLY IN BED. NO ACUTE DISTRESS NOTED. PT IS TOLERATING G TUBE FEEDING WELL. FALL AND SAFETY PRECAUTIONS ARE IN PLACE.
--- NOTE | 2018-09-17 04:00 | NUR ---
PT IS SLEEPING WITHOUT ANY DISTRESS NOTED. GT FEEDING IS INFUSING WELL AT 55ML/HR. FALL AND SAFETY PRECAUTIONS ARE IN PLACE.
--- NOTE | 2018-09-17 05:00 | NUR ---
G TUBE SITE DRESSING CHANGE DONE. NO DRAINAGE OR ODOR NOTED. SITE WAS CLEANSED WITH NORMAL SALINE AND PAT DRIED, FOLLOWED BY 4X4 DRAIN GAUZE AND 1 INCH PAPER TAPE.
[2018-09-17] MEDS: LEVOTHYROXINE SODIUM 0.05 MG TABLET GT SCH (06:27)
--- NOTE | 2018-09-17 06:53 | NUR ---
PT IS SLEEPING COMFORTABLY IN BED. NO RESPIRATORY DISTRESS NOTED. ALL PT'S NEEDS WERE ATTENDED TO. NO FALL OR INJURY OR SEIZURE ACTIVITY NOTED THIS SHIFT. G TUBE FEEDING IS IN PROGRESS AT 55ML/HR. FALL, SEIZURE AND SAFETY PRECAUTIONS ARE IN PLACE. ACCUCHECK 119 THIS AM AND NO INSULIN COVERAGE NEEDED. SKIN REMAINS WARM AND DRY TO TOUCH. SALINE LOCK IS INTACT IN LFA. WILL ENDORSE TO DAY SHIFT NURSE.
[2018-09-17] MEDS: IPRATROPIUM/ALBUTEROL SULFATE 3 ML AMPUL.NEB (DUONEB) INH SCH ×3 (07:17→20:01)
[2018-09-17 07:54] VITALS: BP_SYST 154
--- NOTE | 2018-09-17 08:00 | NUR ---
Opening notes, Received pt in bed, pt is aaox2, denies pain this time, no sob, no resp distress. pt is afebrile. iv site intact and patent. no s/s of infiltration and swelling on iv site. safety precaution in place. call light in reach. bed in low position. encouraged pt to call for assist and pain meds. will cont to monitor.
[2018-09-17] MEDS: FUROSEMIDE 20 MG/2 ML VIAL IVP SCH (08:57)
[2018-09-17] MEDS: metroNIDAZOLE 500 mg/NS 100 ML IV SCH ×2 (08:57→22:33)
[2018-09-17] MEDS: CARVEDILOL 12.5 MG TABLET (COREG) PO SCH ×2 (08:58→22:34)
[2018-09-17] MEDS: APIXABAN 2.5 MG TABLET GT SCH ×2 (08:59→22:25)
[2018-09-17] MEDS: ASCORBIC ACID 500 MG TABLET GT SCH (08:59)
[2018-09-17] MEDS: DOCUSATE SODIUM 250 MG CAPSULE PO SCH ×2 (09:00→22:33)
[2018-09-17] MEDS: SERTRALINE HCL 50 MG TABLET GT SCH (09:00)
[2018-09-17] MEDS: metFORMIN HCL 500 MG TABLET PO SCH ×2 (09:01→17:38)
[2018-09-17] MEDS: MEMANTINE HCL 5 MG TABLET GT SCH (09:01)
[2018-09-17] MEDS: PREDNISONE 20 MG TABLET PO SCH ×2 (09:02→17:38)
[2018-09-17] MEDS: LevETIRAcetam 500 MG/5 ML UDC ORAL LIQUID GT SCH ×2 (09:05→22:37)
--- NOTE | 2018-09-17 10:00 | NUR ---
pt in bed, eyes closed, appears sleeping and comfortable, call light in reach. bed in low position. will cont to monitor.
--- NOTE | 2018-09-17 10:18 | NUR ---
Discharge Planning: DCP faxed referral to [facility] ( [phone] p [phone]) with updated order regarding pt isolation. Addendum: 09/17/[address] DP Lance from [facility] ( [phone]) lm for DCP to call Alex on his cell regarding patient and room. DCP lm for Alex from [facility] ( [phone] p [phone]). DCP to follow up Addendum: 09/17/[address] DP Alex from [facility] ( [phone]) gave DCP Alejandro Tomas ([phone]). Alex suggested DCP call regarding pt. Alejandro Tomas returned call to DCP, he will call back once he gets back to [facility].
--- NOTE | 2018-09-17 12:01 | NUR ---
bs is 128, no coveraged indicated.
[2018-09-17 12:50] VITALS: BP_SYST 140
--- NOTE | 2018-09-17 13:20 | NUR ---
Nutrition F/U RD reviewed EMR including physician/nursing notes, pertinent labs/meds, and care trends. Current TF order: Glucerna 1.2 at 55 ml/hr, Free Water Flush: 50 ml Q6h via GT. TF was infusing at appropriate rate. Per RN, pt has been tolerating TF well, no residuals. Plans to D/C to SNF today. Current TF regimen is adequate/appropriate. Pt continues at moderate nutritional risk. RD to F/U within 3-5 days.
[2018-09-17 16:07] VITALS: BP_SYST 144
--- NOTE | 2018-09-17 17:20 | NUR ---
bs is 126, no coverage indicated. pt is doing okay, no s/s of resp distress.
--- NOTE | 2018-09-17 18:13 | NUR ---
closing notes, pt has been stable the whole shift, no c/o pain, g-tube feeding infusing well. <50 cc residual noted. dc order to snf by md, waiting for bed availability. pt needs to get her last dose of amikacin. will endorse to night rn.
--- NOTE | 2018-09-17 19:30 | NUR ---
BEDSIDE REPORT WAS RECEIVED FROM DAY SHIFT NURSE. PT IS LYING COMFORTABLY IN BED AWAKE AND ORIENTED TO HER NAME AND PLACE ONLY. SKIN IS WARM AND DRY TO TOUCH. NO SIGNS OR SYMPTOMS OF HYPOGLYCEMIA OR HYPERGLYCEMIA NOTED. GT FEEDING OF GLUCERNA 1.2 IS INFUSING WELL AT 55ML/HR AND WELL TOLERATED BY PT. HOB IS ELEVATED 45 DEGREES TO PREVENT ASPIRATION. JEREZ CATHETER TO GRAVITY DRAINAGE IS DRAINING CLEAR YELLOWISH URINE. FALL, SEIZURE AND SAFETY PRECAUTIONS ARE IN PLACE.
[2018-09-17 20:00] VITALS: BP_SYST 156
[2018-09-17] MEDS ORDERED: AMIKACIN SULFATE 500 MG in NS 100 ML IV SCH (20:00)
--- NOTE | 2018-09-17 22:36 | NUR ---
ACCUCHECK 119 AND NO INSULIN COVERAGE NEEDED. SKIN REMAINS WARM AND DRY TO TOUCH. GT FEEDING IS INFUSING WELL AT 55ML/HR.
[2018-09-17 23:30] VITALS: BP_SYST 140
--- NOTE | 2018-09-18 03:00 | NUR ---
PT CONTINUES TO SLEEP COMFORTABLY IN BED. NO ACUTE DISTRESS NOTED. PT IS TOLERATING G TUBE FEEDING WELL. FALL AND SAFETY PRECAUTIONS ARE IN PLACE.
--- NOTE | 2018-09-18 05:00 | NUR ---
PT IS TOLERATING G TUBE FEEDING WELL. FALL, SEIZURE AND SAFETY PRECAUTIONS ARE IN PLACE.
--- NOTE | 2018-09-18 06:40 | NUR ---
PT IS AWAKE AND RESTING COMFORTABLY IN BED. NO RESPIRATORY DISTRESS NOTED AT THIS TIME. ALL PT'S NEEDS WERE ATTENDED TO. NO FALL OR INJURY OR SEIZURE ACTIVITY NOTED THIS SHIFT. G TUBE FEEDING IS IN PROGRESS AT 55ML/HR. FALL, SEIZURE AND SAFETY PRECAUTIONS ARE IN PLACE. ACCUCHECK 125 THIS AM AND NO INSULIN COVERAGE NEEDED. SKIN REMAINS WARM AND DRY TO TOUCH. SALINE LOCK IS INTACT IN LFA. WILL ENDORSE TO DAY SHIFT NURSE.
[2018-09-18] MEDS: LEVOTHYROXINE SODIUM 0.05 MG TABLET GT SCH (06:43)
[2018-09-18 07:30] LABS: ANION GAP 4 (5-15); CALCIUM 8.6 mg/dL (8.4-11.0); CHLORIDE 102 mmol/L (98-107); GLUCOSE 130 mg/dL (70-99); POTASSIUM 3.7 mmol/L (3.5-5.1); SODIUM SERUM 137 mmol/L (136-145); UREA NITROGEN, BLOOD 31 mg/dL (8-21)
[2018-09-18 07:51] VITALS: BP_SYST 150
--- NOTE | 2018-09-18 08:43 | NUR ---
Discharge Planning Faxed discharge order and updated 24 hour report to [facility] requesting bed today. Will follow up. Addendum: 09/18/18 at 1052 by Rosemary Hollis LCSW Phoned Alex at [facility], , at 9:30 am. He was in a meeting. Requested he return the call. Phoned [facility] at 10:45am. Spoke with hospice administrator, Alejandro. He stated that as per CDC, patient requires an iso room due to diagnosis. They are working to make an iso room for patient. Will notify when one is available. Addendum: 09/18/18 at 1100 by Rosemary Hollis LCSW Alejandro from [facility] called. Iso bed available, room 17 Addendum: 09/18/18 at 1121 by Rosemary Hollis LCSW Gio Fay at [facility] [place] [address], . S transport arranged for 13:00.
[2018-09-18] MEDS: DOCUSATE SODIUM 250 MG CAPSULE PO SCH (09:00)
[2018-09-18] MEDS: IPRATROPIUM/ALBUTEROL SULFATE 3 ML AMPUL.NEB (DUONEB) INH SCH (09:00)
--- NOTE | 2018-09-18 09:00 | NUR ---
spoke with dheeraj mendiola/nirmalp , told her that dr pagan spoke with jocelyn yesterday re dc to [facility]. told her that dr pagan wants to be called by her.
[2018-09-18] MEDS: SERTRALINE HCL 50 MG TABLET GT SCH (09:10)
[2018-09-18] MEDS: metFORMIN HCL 500 MG TABLET PO SCH (09:10)
[2018-09-18] MEDS: PREDNISONE 20 MG TABLET PO SCH (09:10)
[2018-09-18] MEDS: FUROSEMIDE 20 MG/2 ML VIAL IVP SCH (09:11)
[2018-09-18] MEDS: metroNIDAZOLE 500 mg/NS 100 ML IV SCH (09:11)
[2018-09-18] MEDS: ASCORBIC ACID 500 MG TABLET GT SCH (09:12)
[2018-09-18] MEDS: CARVEDILOL 12.5 MG TABLET (COREG) PO SCH (09:12)
[2018-09-18] MEDS: MEMANTINE HCL 5 MG TABLET GT SCH (09:12)
[2018-09-18] MEDS: APIXABAN 2.5 MG TABLET GT SCH (09:14)
[2018-09-18] MEDS: LevETIRAcetam 500 MG/5 ML UDC ORAL LIQUID GT SCH (09:16)
[2018-09-18 11:23] VITALS: BP_SYST 145
[2018-09-18 11:24] VITALS: BP_SYST 145
--- NOTE | 2018-09-18 11:43 | NUR ---
SBAR REPORT GIVEN TO NURSE BERRIOS OF [facility].
--- NOTE | 2018-09-18 11:47 | NUR ---
DC PLANNING Order to dc back to SNF. 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 Informed pt @ bedside & agreeable states to notify dtr Silvia. Called & informed dtr Silvia, agreeable w dc back to [facility] today @ 1300. Pt's nurse Bar aware.
--- NOTE | 2018-09-18 14:00 | NUR ---
D/C Patient Patient given medication reconciliation form and D/C instructions. Exit Care provided. Patient verbalized understanding. Patient is non-ambulatory , bedbound. Patient in stable condition, ID band removed. IV catheter removed, intact and dressing applied, no active bleeding. Meneses catheter kept. Patient has chronic meneses cath. No Rx of given. Patient educated on pain management. All belongings sent with patient.
== END 2018-09-18 13:20 | DRG 177 ==
LOC: SED 07:29 → STU 09:28 → SMU 09-12 18:51
PROVIDERS: ADMIT General Practice; ATTEND General Practice
DX: J69.0 Pneumonitis due to inhalation of food and vomit (principal); J96.00 Acute respiratory failure, unspecified whether with hypoxia or hypercapnia; I21.A1 Myocardial infarction type 2; I50.43 Acute on chronic combined systolic (congestive) and diastolic (congestive) heart failure; E44.0 Moderate protein-calorie malnutrition; N39.0 Urinary tract infection, site not specified; I69.354 Hemiplegia and hemiparesis following cerebral infarction affecting left non-dominant side; I42.9 Cardiomyopathy, unspecified; Z66 Do not resuscitate; Z16.24 Resistance to multiple antibiotics; Z16.19 Resistance to other specified beta lactam antibiotics; Z16.12 Extended spectrum beta lactamase (ESBL) resistance; R13.10 Dysphagia, unspecified; J44.9 Chronic obstructive pulmonary disease, unspecified; I11.0 Hypertensive heart disease with heart failure; E03.9 Hypothyroidism, unspecified; G40.909 Epilepsy, unspecified, not intractable, without status epilepticus; F02.80 Dementia in other diseases classified elsewhere, unspecified severity, without behavioral disturbance, psychotic disturbance, mood disturbance, and anxiety; G30.9 Alzheimer's disease, unspecified; I35.0 Nonrheumatic aortic (valve) stenosis; B96.5 Pseudomonas (aeruginosa) (mallei) (pseudomallei) as the cause of diseases classified elsewhere; E11.51 Type 2 diabetes mellitus with diabetic peripheral angiopathy without gangrene; B96.20 Unspecified Escherichia coli [E. coli] as the cause of diseases classified elsewhere; J98.01 Acute bronchospasm; D64.9 Anemia, unspecified; I48.91 Unspecified atrial fibrillation; Z88.8 Allergy status to other drugs, medicaments and biological substances; Z88.1 Allergy status to other antibiotic agents; Z79.899 Other long term (current) drug therapy; Z74.01 Bed confinement status; Z78.9 Other specified health status; Z79.890 Hormone replacement therapy; Z86.711 Personal history of pulmonary embolism; Z86.718 Personal history of other venous thrombosis and embolism; Z79.01 Long term (current) use of anticoagulants; Z93.1 Gastrostomy status; Z68.23 Body mass index [BMI] 23.0-23.9, adult
CPT/HCPCS: 36415; 36600; 71045; 80048; 80053; 80150; 81000-TC; 82550-TC; 82803-TC; 82962; 83036; 83605; 83735-TC; 83880; 84484; 85025; 85610-TC; 85730-TC; 87040-TC; 87081; 87086; 87186-TC; 92610-GN; 93005; 93306; 94640; 94660; 94760; 96365; 96375; 99285; G0378; J0278; J1030; J1940; J2543; J2930; J3475; J3490; J7030; J7040; J7512; J7613; J7620

== ENCOUNTER 2020-09-20 06:21 | Inpatient (IN) | payer OTHER, MEDICAID ==
[~2020-09-20] VITALS: Ht 160 cm; Wt 74.2 kg
[~2020-09-20 06:21] MED LIST changes: -ASCO500T20 GT; -CAT.1 GT; +COR12.5 GT; +GLUXR500 GT; -METO25TA6 GT; -SERT-131 GT
[2020-09-20 06:23] VITALS: BP_SYST 104
[2020-09-20] MEDS ORDERED: IPRATROPIUM/ALBUTEROL SULFATE 3 ML AMPUL.NEB (DUONEB) INH ONE (06:30)
[2020-09-20 06:52] LABS: BASOPHILS % (AUTO) 0.6 % (0.0-2.0); EOSINOPHILS # (AUTO) 0.3 K/uL (0.0-0.4); EOSINOPHILS % (AUTO) 3.5 % (0.0-4.0); HEMATOCRIT 33.8 % (36-48); HEMOGLOBIN 10.9 g/dL (12.0-16.0); LYMPHOCYTES # (AUTO) 1.3 K/uL (1.0-5.5); LYMPHOCYTES % (AUTO) 18.5 % (20.5-51.5); MEAN CORPUSCULAR HEMOGLOBIN 30 pg (27-31); MEAN CORPUSCULAR HGB CONC 32 % (32-36); MEAN CORPUSCULAR VOLUME 93 fL (79.0-98.0); MONOCYTES # (AUTO) 0.4 K/uL (0.0-1.0); MONOCYTES % (AUTO) 5.9 % (1.7-9.3); NEUTROPHILS # (AUTO) 5.2 K/uL (1.8-7.7); NEUTROPHILS % (AUTO) 71.5 % (40.0-70.0); PLATELET COUNT (AUTO) 185 K/uL (130-430); RED BLOOD CELL COUNT(AUTO) 3.64 MIL/uL (4.2-6.2); RED CELL DISTRIBUTION WIDTH 13.9 % (9.0-15.0); WHITE BLOOD COUNT (AUTO) 7.2 K/uL (4.8-10.8)
[2020-09-20] MEDS ORDERED: CLONIDINE PO (07:00)
[2020-09-20] MEDS ORDERED: INSU100V11 SQ (07:00)
[2020-09-20] MEDS ORDERED: WELSR100 PO (07:00)
[2020-09-20] MEDS ORDERED: IPRA4AER INH (07:00)
[2020-09-20] MEDS ORDERED: CRAN250C PO (07:00)
[2020-09-20] MEDS ORDERED: ACID1CAP2 PO (07:00)
[2020-09-20 07:18] LABS: ALANINE AMINOTRANSFERASE 23 U/L (12-78); ALBUMIN 2.6 g/dL (3.4-4.8); ANION GAP 7 (5-15); ASPARTATE AMINOTRANSFERASE 30 U/L (10-37); CALCIUM 8.2 mg/dL (8.4-11.0); CHLORIDE 106 mmol/L (98-107); CREATININE 2.08 mg/dL (0.55-1.30); GLUCOSE 160 mg/dL (70-99); SODIUM SERUM 139 mmol/L (136-145); TOTAL BILIRUBIN 0.1 mg/dL (0.0-1.0); UREA NITROGEN, BLOOD 44 mg/dL (8-21)
[2020-09-20 07:19] LABS: POTASSIUM 4.8 mmol/L (3.5-5.1)
[2020-09-20 07:20] LABS: PROTHROMBIN TIME 9.9 SECS (9.5-12.5)
[2020-09-20] MEDS ORDERED: MORPHINE 2 MG/ML INJ. SYRINGE IVP ONE (07:30)
[2020-09-20] MEDS ORDERED: ONDANSETRON HCL 4 MG/2 ML VIAL IVP ONE (07:30)
[2020-09-20 07:42] LABS: BILIRUBIN,URINE NEGATIVE (NEGATIVE); BLOOD, URINE 3+ (NEGATIVE); CLARITY/URINE CLOUDY (CLEAR); COLOR,URINE YELLOW (YELLOW); GLUCOSE,URINE NEGATIVE (NEGATIVE); KETONES,URINE NEGATIVE (NEGATIVE); LEUKOCYTE ESTERASE ,URINE 3+ (NEGATIVE); NITRITE, URINE NEGATIVE (NEGATIVE); PROTEIN URINE 1+ (NEGATIVE); UROBILINOGEN,URINE 0.2 (0.2-1.0)
[2020-09-20 08:23] LABS: BACTERIA,URINE MANY /HPF (None Seen); WBC,URINE >100 /HPF (0-3)
[2020-09-20] MEDS ORDERED: cefTRIAXone 1 GM in D5W 50 ML IV ONE (08:45)
[2020-09-20] MEDS ORDERED: cefTRIAXone 1 GM VIAL ONE (08:56)
[2020-09-20] MEDS ORDERED: ACETAMINOPHEN 650 MG/20.3 ML UDC GT PRN (09:30)
[2020-09-20 09:57] VITALS: BP_SYST 130
[2020-09-20 10:13] VITALS: BP_SYST 130
[2020-09-20] MEDS: NACL 0.9% 1,000 ML IV SCH (10:20)
[2020-09-20] MEDS: cefTRIAXone 1 GM IVPB PREMIX 50 ML IV SCH (11:15)
[2020-09-20] MEDS ORDERED: ACETAMINOPHEN 650 MG/20.3 ML UDC PO PRN (11:15)
[2020-09-20] MEDS ORDERED: PHENAZOPYRIDINE HCL 100 MG TABLET PO ONE (11:15)
[2020-09-20 11:26] VITALS: BP_SYST 114
[2020-09-20] MEDS: IPRATROPIUM/ALBUTEROL SULFATE 3 ML AMPUL.NEB (DUONEB) INH SCH ×2 (14:53→23:24)
[2020-09-20 15:18] VITALS: BP_SYST 112
[2020-09-20] MEDS: PHENAZOPYRIDINE HCL 100 MG TABLET PO SCH (17:35)
[2020-09-20 20:00] VITALS: BP_SYST 136
[2020-09-20] MEDS ORDERED: FUROSEMIDE 20 MG/2 ML VIAL IVP SCH (21:00)
[2020-09-20] MEDS: levETIRAcetam 500 MG TABLET GT SCH (21:29)
[2020-09-20] MEDS: DOCUSATE SODIUM 250 MG CAPSULE PO SCH (21:30)
[2020-09-20] MEDS: MEMANTINE HCL 5 MG TABLET GT SCH (21:30)
[2020-09-20] MEDS: CARVEDILOL 12.5 MG TABLET (COREG) GT SCH (21:30)
[2020-09-20] MEDS: APIXABAN 2.5 MG TABLET GT SCH (21:31)
[2020-09-21 01:08] VITALS: BP_SYST 123
[2020-09-21] MEDS: NACL 0.9% 1,000 ML IV SCH (04:21)
[2020-09-21] MEDS: IPRATROPIUM/ALBUTEROL SULFATE 3 ML AMPUL.NEB (DUONEB) INH SCH ×3 (05:39→22:55)
[2020-09-21] MEDS ORDERED: ACETAMINOPHEN 650 MG/20.3 ML UDC PO PRN (06:45)
[2020-09-21 07:01] LABS: BASOPHILS % (AUTO) 0.4 % (0.0-2.0); EOSINOPHILS # (AUTO) 0.3 K/uL (0.0-0.4); EOSINOPHILS % (AUTO) 4.5 % (0.0-4.0); HEMATOCRIT 30.4 % (36-48); HEMOGLOBIN 9.7 g/dL (12.0-16.0); LYMPHOCYTES % (AUTO) 35.7 % (20.5-51.5); MEAN CORPUSCULAR HEMOGLOBIN 30 pg (27-31); MEAN CORPUSCULAR HGB CONC 32 % (32-36); MEAN CORPUSCULAR VOLUME 94 fL (79.0-98.0); MONOCYTES # (AUTO) 0.7 K/uL (0.0-1.0); MONOCYTES % (AUTO) 12.5 % (1.7-9.3); NEUTROPHILS # (AUTO) 2.6 K/uL (1.8-7.7); NEUTROPHILS % (AUTO) 46.9 % (40.0-70.0); PLATELET COUNT (AUTO) 134 K/uL (130-430); RED BLOOD CELL COUNT(AUTO) 3.24 MIL/uL (4.2-6.2); RED CELL DISTRIBUTION WIDTH 13.9 % (9.0-15.0); WHITE BLOOD COUNT (AUTO) 5.6 K/uL (4.8-10.8)
[2020-09-21 07:47] LABS: ALANINE AMINOTRANSFERASE 21 U/L (12-78); ALBUMIN 2.3 g/dL (3.4-4.8); ANION GAP 9 (5-15); ASPARTATE AMINOTRANSFERASE 18 U/L (10-37); CALCIUM 8.1 mg/dL (8.4-11.0); CHLORIDE 113 mmol/L (98-107); CREATININE 2.03 mg/dL (0.55-1.30); GLUCOSE 111 mg/dL (70-99); POTASSIUM 4.6 mmol/L (3.5-5.1); SODIUM SERUM 146 mmol/L (136-145); UREA NITROGEN, BLOOD 44 mg/dL (8-21)
[2020-09-21 08:04] VITALS: BP_SYST 136
[2020-09-21] MEDS: DOCUSATE SODIUM 250 MG CAPSULE PO SCH ×3 (08:06→20:31)
[2020-09-21] MEDS: PHENAZOPYRIDINE HCL 100 MG TABLET PO SCH ×2 (08:06→17:41)
[2020-09-21] MEDS: levETIRAcetam 500 MG TABLET GT SCH ×2 (08:06→20:18)
[2020-09-21] MEDS: LEVOTHYROXINE SODIUM 0.05 MG TABLET GT SCH (08:07)
[2020-09-21] MEDS: APIXABAN 2.5 MG TABLET GT SCH ×2 (08:07→20:25)
[2020-09-21] MEDS: CARVEDILOL 12.5 MG TABLET (COREG) GT SCH ×2 (08:07→20:21)
[2020-09-21] MEDS: FAMOTIDINE 20 MG TABLET GT SCH (08:07)
[2020-09-21] MEDS: MEMANTINE HCL 5 MG TABLET GT SCH ×2 (08:08→20:22)
[2020-09-21] MEDS: buPROPion HCL 100 MG TABLET.SA PO SCH (08:10)
[2020-09-21 08:25] LABS: TOTAL BILIRUBIN 0.2 mg/dL (0.0-1.0)
[2020-09-21] MEDS: cefTRIAXone 1 GM IVPB PREMIX 50 ML IV SCH (10:09)
[2020-09-21] MEDS ORDERED: FUROSEMIDE 20 MG/2 ML VIAL IVP ONE (11:00)
[2020-09-21 11:23] VITALS: BP_SYST 135
[2020-09-21 15:11] VITALS: BP_SYST 147
[2020-09-21] MEDS ORDERED: methylPREDNISolone SOD SUCC 40 MG/ML VIAL IVP ONE (15:15)
[2020-09-21] MEDS ORDERED: MUPIROCIN 2% TOPICAL OINTMENT 22 GM NS ONE (15:45)
[2020-09-21 19:30] VITALS: BP_SYST 150
[2020-09-21] MEDS: BUDESONIDE 0.5 MG/2 ML AMPUL.NEB INH SCH (19:30)
[2020-09-21] MEDS: ACETAMINOPHEN 650 MG/20.3 ML UDC PO PRN (20:18)
[2020-09-21] MEDS: MUPIROCIN 2% TOPICAL OINTMENT 22 GM NS SCH (20:25)
[2020-09-21] MEDS: INSULIN LISPRO SLIDING SCALE 100 UNITS/ML VIAL (humaLOG) SUBCUT PRN (23:55)
[2020-09-22 00:15] VITALS: BP_SYST 173
[2020-09-22] MEDS ORDERED: amLODIPine BESYLATE 10 MG TABLET PO ONE (00:15)
[2020-09-22] MEDS: IPRATROPIUM/ALBUTEROL SULFATE 3 ML AMPUL.NEB (DUONEB) INH SCH ×4 (07:08→19:30)
[2020-09-22] MEDS: BUDESONIDE 0.5 MG/2 ML AMPUL.NEB INH SCH ×2 (07:08→19:45)
[2020-09-22 07:50] VITALS: BP_SYST 136
[2020-09-22 08:42] LABS: ANION GAP 10 (5-15); CALCIUM 8.4 mg/dL (8.4-11.0); CHLORIDE 108 mmol/L (98-107); CREATININE 1.89 mg/dL (0.55-1.30); GLUCOSE 161 mg/dL (70-99); POTASSIUM 4.2 mmol/L (3.5-5.1); SODIUM SERUM 142 mmol/L (136-145); UREA NITROGEN, BLOOD 41 mg/dL (8-21)
[2020-09-22] MEDS ORDERED: methylPREDNISolone SOD SUCC 40 MG/ML VIAL IVP SCH (09:00)
[2020-09-22] MEDS ORDERED: amLODIPine BESYLATE 10 MG TABLET PO SCH (09:00)
[2020-09-22] MEDS ORDERED: cloNIDine HCL 0.1 MG TABLET PO PRN (09:45)
[2020-09-22] MEDS: MEMANTINE HCL 5 MG TABLET GT SCH ×2 (09:58→21:58)
[2020-09-22] MEDS: APIXABAN 2.5 MG TABLET GT SCH ×2 (09:58→21:54)
[2020-09-22] MEDS: LEVOTHYROXINE SODIUM 0.05 MG TABLET GT SCH (09:58)
[2020-09-22] MEDS: levETIRAcetam 500 MG TABLET GT SCH ×2 (09:59→21:57)
[2020-09-22] MEDS: FAMOTIDINE 20 MG TABLET GT SCH (09:59)
[2020-09-22] MEDS: CARVEDILOL 12.5 MG TABLET (COREG) GT SCH ×2 (10:00→21:57)
[2020-09-22] MEDS: PHENAZOPYRIDINE HCL 100 MG TABLET PO SCH (10:06)
[2020-09-22] MEDS: ACETAMINOPHEN 650 MG/20.3 ML UDC PO PRN ×2 (10:09→18:47)
[2020-09-22] MEDS: MUPIROCIN 2% TOPICAL OINTMENT 22 GM NS SCH ×2 (10:11→21:58)
[2020-09-22] MEDS ORDERED: DOCUSATE SODIUM 100 MG CAPSULE PO ONE (10:15)
[2020-09-22] MEDS: buPROPion HCL 100 MG TABLET.SA PO SCH (10:21)
[2020-09-22] MEDS: cefTRIAXone 1 GM IVPB PREMIX 50 ML IV SCH (10:24)
[2020-09-22] MEDS ORDERED: FUROSEMIDE 20 MG TABLET PO ONE (11:30)
[2020-09-22] MEDS: INSULIN LISPRO SLIDING SCALE 100 UNITS/ML VIAL (humaLOG) SUBCUT PRN ×3 (11:31→21:55)
[2020-09-22 11:35] VITALS: BP_SYST 155
[2020-09-22 16:54] VITALS: BP_SYST 176
[2020-09-22] MEDS: CEFTAZIDIME 1 GM in D5W 50 ML IV SCH (18:29)
[2020-09-22 19:30] VITALS: BP_SYST 118
[2020-09-22] MEDS: DOCUSATE SODIUM 100 MG CAPSULE PO SCH (21:56)
[2020-09-22] MEDS: methylPREDNISolone SOD SUCC 40 MG/ML VIAL IVP SCH (21:58)
[2020-09-22] MEDS ORDERED: CEFTAZIDIME 1 GM in D5W 50 ML IV SCH (22:00)
[2020-09-23 00:13] VITALS: BP_SYST 146
[2020-09-23] MEDS: IPRATROPIUM/ALBUTEROL SULFATE 3 ML AMPUL.NEB (DUONEB) INH SCH ×4 (00:15→19:48)
[2020-09-23] MEDS: methylPREDNISolone SOD SUCC 40 MG/ML VIAL IVP SCH ×3 (06:24→21:28)
[2020-09-23] MEDS: CEFTAZIDIME 1 GM in D5W 50 ML IV SCH ×2 (06:25→17:31)
[2020-09-23] MEDS: INSULIN LISPRO SLIDING SCALE 100 UNITS/ML VIAL (humaLOG) SUBCUT PRN ×4 (06:33→21:30)
[2020-09-23] MEDS: ACETAMINOPHEN 650 MG/20.3 ML UDC PO PRN (06:41)
[2020-09-23] MEDS: BUDESONIDE 0.5 MG/2 ML AMPUL.NEB INH SCH ×2 (07:06→19:48)
[2020-09-23 07:49] LABS: ANION GAP 7 (5-15); CALCIUM 8.6 mg/dL (8.4-11.0); CHLORIDE 112 mmol/L (98-107); CREATININE 2.47 mg/dL (0.55-1.30); GLUCOSE 164 mg/dL (70-99); POTASSIUM 4.3 mmol/L (3.5-5.1); SODIUM SERUM 147 mmol/L (136-145); UREA NITROGEN, BLOOD 43 mg/dL (8-21)
[2020-09-23 08:00] VITALS: BP_SYST 156
[2020-09-23] MEDS: FUROSEMIDE 20 MG TABLET PO SCH (09:01)
[2020-09-23] MEDS: levETIRAcetam 500 MG TABLET GT SCH ×2 (09:01→21:27)
[2020-09-23] MEDS: FAMOTIDINE 20 MG TABLET GT SCH (09:01)
[2020-09-23] MEDS: MEMANTINE HCL 5 MG TABLET GT SCH ×2 (09:02→21:27)
[2020-09-23] MEDS: LEVOTHYROXINE SODIUM 0.05 MG TABLET GT SCH (09:02)
[2020-09-23] MEDS: CARVEDILOL 12.5 MG TABLET (COREG) GT SCH ×2 (09:03→21:26)
[2020-09-23] MEDS: buPROPion HCL 100 MG TABLET.SA PO SCH (09:05)
[2020-09-23] MEDS: APIXABAN 2.5 MG TABLET GT SCH ×2 (09:06→21:31)
[2020-09-23] MEDS: MUPIROCIN 2% TOPICAL OINTMENT 22 GM NS SCH ×2 (09:08→21:27)
[2020-09-23] MEDS: DOCUSATE SODIUM 100 MG CAPSULE PO SCH ×2 (09:09→21:27)
[2020-09-23 10:25] LABS: BASOPHILS % (AUTO) 0.3 % (0.0-2.0); HEMATOCRIT 31.2 % (36-48); HEMOGLOBIN 10.1 g/dL (12.0-16.0); LYMPHOCYTES # (AUTO) 1.1 K/uL (1.0-5.5); LYMPHOCYTES % (AUTO) 15.4 % (20.5-51.5); MEAN CORPUSCULAR HEMOGLOBIN 30 pg (27-31); MEAN CORPUSCULAR HGB CONC 32 % (32-36); MEAN CORPUSCULAR VOLUME 94 fL (79.0-98.0); MONOCYTES # (AUTO) 0.2 K/uL (0.0-1.0); MONOCYTES % (AUTO) 3.3 % (1.7-9.3); NEUTROPHILS # (AUTO) 5.6 K/uL (1.8-7.7); PLATELET COUNT (AUTO) 160 K/uL (130-430); RED BLOOD CELL COUNT(AUTO) 3.33 MIL/uL (4.2-6.2); RED CELL DISTRIBUTION WIDTH 13.9 % (9.0-15.0); WHITE BLOOD COUNT (AUTO) 6.9 K/uL (4.8-10.8)
[2020-09-23 11:27] VITALS: BP_SYST 154
[2020-09-23 15:34] VITALS: BP_SYST 143
[2020-09-23 19:00] VITALS: BP_SYST 142
[2020-09-23 20:00] VITALS: BP_SYST 142
[2020-09-24] MEDS: IPRATROPIUM/ALBUTEROL SULFATE 3 ML AMPUL.NEB (DUONEB) INH SCH ×4 (00:18→19:26)
[2020-09-24 00:33] VITALS: BP_SYST 146
[2020-09-24] MEDS: CEFTAZIDIME 1 GM in D5W 50 ML IV SCH ×2 (05:29→17:30)
[2020-09-24] MEDS: methylPREDNISolone SOD SUCC 40 MG/ML VIAL IVP SCH ×3 (05:30→21:22)
[2020-09-24] MEDS: ACETAMINOPHEN 650 MG/20.3 ML UDC PO PRN (05:48)
[2020-09-24 06:34] LABS: HEMATOCRIT 34.9 % (36-48); HEMOGLOBIN 11.1 g/dL (12.0-16.0); LYMPHOCYTES # (AUTO) 1.7 K/uL (1.0-5.5); LYMPHOCYTES % (AUTO) 18.2 % (20.5-51.5); MEAN CORPUSCULAR HEMOGLOBIN 30 pg (27-31); MEAN CORPUSCULAR HGB CONC 32 % (32-36); MEAN CORPUSCULAR VOLUME 94 fL (79.0-98.0); MONOCYTES # (AUTO) 0.4 K/uL (0.0-1.0); MONOCYTES % (AUTO) 4.5 % (1.7-9.3); NEUTROPHILS % (AUTO) 77.3 % (40.0-70.0); PLATELET COUNT (AUTO) 185 K/uL (130-430); RED BLOOD CELL COUNT(AUTO) 3.73 MIL/uL (4.2-6.2); RED CELL DISTRIBUTION WIDTH 14.2 % (9.0-15.0); WHITE BLOOD COUNT (AUTO) 9.1 K/uL (4.8-10.8)
[2020-09-24 07:08] LABS: ALANINE AMINOTRANSFERASE 17 U/L (12-78); ALBUMIN 2.6 g/dL (3.4-4.8); ANION GAP 7 (5-15); ASPARTATE AMINOTRANSFERASE 13 U/L (10-37); CALCIUM 8.8 mg/dL (8.4-11.0); CHLORIDE 111 mmol/L (98-107); CREATININE 1.98 mg/dL (0.55-1.30); GLUCOSE 139 mg/dL (70-99); SODIUM SERUM 146 mmol/L (136-145); TOTAL BILIRUBIN 0.1 mg/dL (0.0-1.0); UREA NITROGEN, BLOOD 45 mg/dL (8-21)
[2020-09-24 08:14] VITALS: BP_SYST 108; BP_SYST 157
[2020-09-24] MEDS: DOCUSATE SODIUM 100 MG CAPSULE PO SCH ×2 (09:00→20:36)
[2020-09-24] MEDS: FAMOTIDINE 20 MG TABLET GT SCH (09:06)
[2020-09-24] MEDS: CARVEDILOL 12.5 MG TABLET (COREG) GT SCH ×2 (09:06→20:37)
[2020-09-24] MEDS: LEVOTHYROXINE SODIUM 0.05 MG TABLET GT SCH (09:07)
[2020-09-24] MEDS: MEMANTINE HCL 5 MG TABLET GT SCH ×2 (09:07→20:37)
[2020-09-24] MEDS: FUROSEMIDE 20 MG TABLET PO SCH (09:07)
[2020-09-24] MEDS: levETIRAcetam 500 MG TABLET GT SCH ×2 (09:08→20:36)
[2020-09-24] MEDS: buPROPion HCL 100 MG TABLET.SA PO SCH (09:12)
[2020-09-24] MEDS: APIXABAN 2.5 MG TABLET GT SCH ×2 (09:14→20:38)
[2020-09-24] MEDS: MUPIROCIN 2% TOPICAL OINTMENT 22 GM NS SCH (09:14)
[2020-09-24 13:32] VITALS: BP_SYST 151
[2020-09-24] MEDS: BUDESONIDE 0.5 MG/2 ML AMPUL.NEB INH SCH ×2 (14:03→19:40)
[2020-09-24 15:40] LABS: INR 1.1 (0.8-1.2); PROTHROMBIN TIME 11.1 SECS (9.5-12.5)
[2020-09-24] MEDS: INSULIN LISPRO SLIDING SCALE 100 UNITS/ML VIAL (humaLOG) SUBCUT PRN (17:13)
[2020-09-24 19:56] VITALS: BP_SYST 144
[2020-09-24 20:00] VITALS: BP_SYST 144
[2020-10-04] MEDS ORDERED: PIPE2.257 IV (16:18)
[2020-10-04] MEDS ORDERED: VIS10 PO (16:18)
[2020-10-04] MEDS ORDERED: LOSA25TA3 PO (16:18)
== END 2020-09-24 21:58 | DRG 280 ==
LOC: SED 06:21 → STU 08:51
PROVIDERS: ADMIT Internal Medicine; ATTEND Internal Medicine
PROC: 5A09357 Assistance with Respiratory Ventilation, Less than 24 Consecutive Hours, Continuous Positive Airway Pressure (ICD-10-PCS; principal; 2020-09-20)
DX: I13.0 Hypertensive heart and chronic kidney disease with heart failure and stage 1 through stage 4 chronic kidney disease, or unspecified chronic kidney disease (principal); I21.A1 Myocardial infarction type 2; E43 Unspecified severe protein-calorie malnutrition; I50.23 Acute on chronic systolic (congestive) heart failure; N17.9 Acute kidney failure, unspecified; N39.0 Urinary tract infection, site not specified; J44.1 Chronic obstructive pulmonary disease with (acute) exacerbation; I69.354 Hemiplegia and hemiparesis following cerebral infarction affecting left non-dominant side; Z16.24 Resistance to multiple antibiotics; I16.9 Hypertensive crisis, unspecified; E87.0 Hyperosmolality and hypernatremia; I43 Cardiomyopathy in diseases classified elsewhere; N18.9 Chronic kidney disease, unspecified; E11.22 Type 2 diabetes mellitus with diabetic chronic kidney disease; B96.20 Unspecified Escherichia coli [E. coli] as the cause of diseases classified elsewhere; D64.9 Anemia, unspecified; G40.909 Epilepsy, unspecified, not intractable, without status epilepticus; E78.5 Hyperlipidemia, unspecified; Z20.822 Contact with and (suspected) exposure to COVID-19; I48.91 Unspecified atrial fibrillation; F32.9 Major depressive disorder, single episode, unspecified; I08.0 Rheumatic disorders of both mitral and aortic valves; R09.02 Hypoxemia; F03.90 Unspecified dementia, unspecified severity, without behavioral disturbance, psychotic disturbance, mood disturbance, and anxiety; E03.9 Hypothyroidism, unspecified; Z86.718 Personal history of other venous thrombosis and embolism; Z86.711 Personal history of pulmonary embolism; Z74.01 Bed confinement status; Z79.4 Long term (current) use of insulin; Z88.8 Allergy status to other drugs, medicaments and biological substances; Z88.1 Allergy status to other antibiotic agents; Z88.6 Allergy status to analgesic agent; Z79.899 Other long term (current) drug therapy; I25.2 Old myocardial infarction; Z68.29 Body mass index [BMI] 29.0-29.9, adult
CPT/HCPCS: 36415; 71045; 80048; 80053; 81000; 82962; 83605; 83735; 83880; 84443; 84484; 85025; 85610-TC; 85730-TC; 87040-TC; 87081; 87086; 93005; 93306; 94640; 94660; 94760; 96374; 96375; 97110-GP; 97163; 97530-GP; 99285; C1751; G0378; J0696; J0713; J1030; J1940; J2270; J2405; J7030; J7060; J7626